=== PATIENT | female | born 1950 | race Caucasian/White ===

== ENCOUNTER 2017-09-04 15:53 | Inpatient (IN) | payer MEDICARE, OTHER ==
[2017-09-04] MEDS ORDERED: Enoxaparin 100 MG/1 ML Syringe SUBCUT ONE (16:16)
[2017-09-04] MEDS ORDERED: Iopamidol 755 Mg/ML 100 ML Bottle IVPUSH ONE (16:20)
[2017-09-04] MEDS ORDERED: Iopamidol 755 MG/ML 50 ML Bottle IVPUSH ONE (16:23)
[2017-09-04] MEDS: Sodium Chloride 0.9% 10 ML Syringe FLUSH PRN ×2 (16:25→16:39)
[2017-09-04] MEDS ORDERED: Sodium Chloride 0.9% 1,000 ML IV SCH (16:30)
--- NOTE | 2017-09-04 16:30 | EDM.PDOC ---
ED HPI GENERAL MEDICAL PROBLEM - General Chief Complaint: Respiratory Problem Stated Complaint: [facility] Time Seen by Provider: 09/04/17 16:08 Source of Information: Reports: Patient History Limitations: Reports: No Limitations - History of Present Illness INITIAL COMMENTS - FREE TEXT/NARRATIVE: The patient states that she flew to [place] from [place], [place], where she lives, about 10 days ago. Afterwards, she discovered that she had bilateral lower extremity edema and painful feet. She states that she got up today around 11:30. She decided to take a dose of her brothers triamterene/hydrochlorothiazide to try to relieve her lower extremity edema. She developed nausea and emesis around 13:00, and did notice some increased urine output. She also had diarrhea, which is chronic. At sometime later - the patient does not know when, she developed sudden onset dyspnea, chest tightness, and a relative felt her pulse to be irregular. He states that her dyspnea was so severe, that she could only breathe while tripoding. When EMS arrived, they found the patient's heart rate to be fast, and she was hypoxemic. In the ED, the patient's SPO2 was 83% on 2 L per NC, 85% on 4 L per NC, and 93% on 6 L per NC. The patient states that she had similar symptoms around 2009. She states that she was hospitalized, but that her workup was negative. Chest Pain Score (Numeric/FACES): 4 - Related Data Allergies Allergy/AdvReac Type Severity Reaction Status Date / Time amoxicillin Allergy Other Verified 09/04/17 16:24 Penicillins Allergy Other Verified 09/04/17 16:24 Home Meds: Home Meds Cholecalciferol (Vitamin D3) [Vitamin D3] 1,000 unit PO DAILY 09/04/17 [History] Hydroxychloroquine [Plaquenil] 200 mg PO BID 09/04/17 [History] Ketorolac Tromethamine/Pf [Acuvail] 1 each OP DAILY 09/04/17 [History] Losartan [Cozaar] 100 mg PO DAILY 09/04/17 [History] Meclizine [Antivert] 25 mg PO DAILY 09/04/17 [History] Sertraline [Zoloft] 100 mg PO DAILY 09/04/17 [History] Ubidecarenone [Co Q-10] 200 mg PO DAILY 09/04/17 [History] atorvaSTATin [Lipitor] 20 mg PO BEDTIME 09/04/17 [History] prednisoLONE Acetate [Prednisolone Acetate] 1 drop OP DAILY 09/04/17 [History] Past Medical History Cardiovascular History: Reports: High Cholesterol, Hypertension Gastrointestinal History: Reports: PUD Genitourinary History: Reports: Urinary Incontinence (stress incontinence) Musculoskeletal History: Reports: Osteoarthritis (knees), Other (See Below) ( Bilateral hip bursitis) Psychiatric History: Reports: Depression, Other (See Below) (Irritable bowel syndrome) Endocrine/Metabolic History: Reports: Obesity/BMI 30+ Oncologic (Cancer) History: Reports: Breast (right, 2013) - Past Surgical History HEENT Surgical History: Reports: Adenoidectomy, Cataract Surgery, Tonsillectomy GI Surgical History: Reports: Appendectomy, Colonoscopy, Hernia, Inguinal (left , x 2) Musculoskeletal Surgical History: Reports: Other (See Below) (Bilateral heel spurs) Oncologic Surgical History: Reports: Lumpectomy (right, 2013) Social & Family History - Tobacco Use Smoking Status *Q: Never Smoker - Alcohol Use Alcohol Use History: Yes Alcohol Use Frequency: Rarely - Recreational Drug Use Recreational Drug Use: No - Living Situation & Occupation Living situation: Reports: Single, Alone Occupation: Retired ED ROS GENERAL - Review of Systems Review Of Systems: ROS reveals no pertinent complaints other than HPI. ED EXAM, GENERAL - Physical Exam Exam: See Below Exam Limited By: No Limitations General Appearance: Alert, WD/WN, No Apparent Distress Eye Exam: Bilateral Eye: EOMI, Normal Inspection Ears: Normal External Exam, Hearing Grossly Normal Nose: Normal Inspection, No Blood Throat/Mouth: Normal Inspection, Normal Lips, Normal Voice, No Airway Compromise Head: Atraumatic, Normocephalic Neck: Normal Inspection, Full Range of Motion Respiratory/Chest: No Respiratory Distress, No Accessory Muscle Use, Decreased Breath Sounds (throughout), Crackles (left base). No: Rhonchi, Wheezing, Prolonged Expiration Cardiovascular: Normal Peripheral Pulses, No Gallop, No JVD, No Murmur, No Rub, Tachycardia (regular), Other (1-2+ pretibial edema bilaterally) Peripheral Pulses: 4+: Radial (L), Radial (R) GI/Abdominal: Normal Bowel Sounds, Soft, Non-Tender, No Organomegaly, No Distention, No Abnormal Bruit, No Mass, Other (Obese) (Female) Exam: Deferred Rectal (Female) Exam: Deferred Back Exam: Normal Inspection, Full Range of Motion, NT Extremities: Normal Inspection, Normal Range of Motion, Normal Capillary Refill Neurological: Alert, Oriented, Normal Cognition, No Motor/Sensory Deficits Psychiatric: Normal Affect Skin Exam: Warm, Dry, Intact, Normal Color, No Rash EKG INTERPRETATION EKG Date: 09/04/17 Time: 16:06 Rhythm: Other (Sinus tachycardia) Rate (Beats/Min): 121 [place]: RAD-Right [place] Deviation P-Wave: Present QRS: Normal ST-T: Normal QT: Prolonged (QTc 497 ms) Comparison: NA - No Prior EKG Course - Vital Signs Last Recorded V/S: Last Vital Signs Temp 37.4 C 09/04/17 16:12 Pulse 127 H 09/04/17 16:12 Resp 16 09/04/17 16:12 BP 109/66 09/04/17 16:12 Pulse Ox 83 L 09/04/17 16:12 - Orders/Labs/Meds Orders: Active Orders 24 hr Category Date Time Status EKG Documentation Completion [RC] STAT Care 09/04/17 16:18 Active Ang Chest [CT] Stat Exams 09/04/17 16:18 Taken Chest 2V [CR] Stat Exams 09/04/17 18:58 Taken Sodium Chloride 0.9% [Normal Saline] 1,000 ml Med 09/04/17 16:30 Active IV ASDIRECTED Sodium Chloride 0.9% [Saline Flush] Med 09/04/17 16:20 Active 10 ml FLUSH ONETIME PRN Medication Orders Sodium Chloride (Normal Saline) 1,000 mls @ 150 mls/hr IV ASDIRECTED BIANCA Last Admin: 09/04/17 16:22 Dose: 150 mls/hr Sodium Chloride (Saline Flush) 10 ml FLUSH ONETIME PRN PRN Reason: IV FLUSH Last Admin: 09/04/17 16:39 Dose: 10 ml Admin: 09/04/17 16:25 Dose: 10 ml Labs: Laboratory Tests 09/04/17 09/04/17 09/04/17 Range/Units 16:55 16:55 16:55 WBC 4.32 (3.98-10.04) K/mm3 RBC 4.93 (3.98-5.22) M/mm3 Hgb 14.7 (11.2-15.7) gm/L Hct 44.8 (34.1-44.9) % MCV 90.9 (79.4-94.8) fl MCH 29.8 (25.6-32.2) pg MCHC 32.8 (32.2-35.5) g/dl RDW Std Deviation 43.2 (36.4-46.3) fL Plt Count 126 L (182-369) K/mm3 MPV 10.6 (9.4-12.3) fl Neutrophils % (Manual) 90 H (40-60) % Band Neutrophils % 0 (0-10) % Lymphocytes % (Manual) 8 L (20-40) % Atypical Lymphs % 0 % Monocytes % (Manual) 1 L (2-10) % Eosinophils % (Manual) 0 L (0.7-5.8) % Basophils % (Manual) 0 L (0.1-1.2) Myelocytes % 1 Platelet Estimate Adequate Plt Morphology Comment Normal RBC Morph Comment Not Reportable Sodium 142 (136-145) mEq/L Potassium 3.4 L (3.5-5.1) mEq/L Chloride 107 (98-107) mEq/L Carbon Dioxide 26 (21-32) mEq/L Anion Gap 12.4 (5-15) BUN 13 (7-18) mg/dL Creatinine 1.1 H (0.55-1.02) mg/dL Est Cr Clr Drug Dosing 38.71 mL/min Estimated GFR (MDRD) 49 (>60) mL/min BUN/Creatinine Ratio 11.8 L (14-18) Glucose 121 H (80-115) mg/dL Calcium 7.7 L (8.5-10.1) mg/dL Magnesium 1.4 L (1.8-2.4) mg/dl Total Bilirubin 0.2 (0.2-1.0) mg/dL AST 26 (15-37) U/L ALT 17 (14-59) U/L Alkaline Phosphatase 44 L (46-116) U/L Troponin I 0.033 (0.00-0.056) ng/mL NT-Pro-B Natriuret Pep 233 H (0-125) pg/mL Total Protein 5.5 L (6.4-8.2) g/dl Albumin 2.7 L (3.4-5.0) g/dl Globulin 2.8 gm/dL Albumin/Globulin Ratio 1.0 (1-2) Meds: Medications Generic Name Dose Route Start Last Admin Trade Name Freq PRN Reason Stop Dose Admin Sodium Chloride 1,000 mls @ 150 mls/hr 09/04/17 16:30 09/04/17 16:22 Normal Saline IV 150 mls/hr ASDIRECTED BIANCA Administration Sodium Chloride 10 ml 09/04/17 16:20 09/04/17 16:39 Saline Flush FLUSH 10 ml ONETIME PRN Administration IV FLUSH Discontinued Medications Generic Name Dose Route Start Last Admin Trade Name Freq PRN Reason Stop Dose Admin Calcium Gluconate 1 gm 09/04/17 17:33 09/04/17 17:58 Calcium Gluconate IV 09/04/17 17:34 1 gm ONETIME STA Administration Enoxaparin Sodium 100 mg 09/04/17 16:16 09/04/17 16:19 Lovenox SUBCUT 09/04/17 16:17 100 mg ONETIME ONE Administration Furosemide 40 mg 09/04/17 17:36 09/04/17 17:54 Lasix IVPUSH 09/04/17 17:37 40 mg NOW ONE Administration Sodium Chloride 150 mls @ 150 mls/hr 09/04/17 16:20 Normal Saline IV 09/04/17 17:19 ASDIRECTED ONE Magnesium Sulfate 2 gm/ Premix 50 mls @ 50 mls/hr 09/04/17 17:31 09/04/17 18: 02 IV 09/04/17 18:30 50 mls/hr ONETIME ONE Administration Iopamidol 100 ml 09/04/17 16:20 09/04/17 16:38 Isovue-370 (76%) IVPUSH 09/04/17 16:21 60 ml ONETIME ONE Administration Iopamidol 50 ml 09/04/17 16:23 09/04/17 16:38 Isovue-370 (76%) IVPUSH 09/04/17 16:24 10 ml ONETIME ONE Administration - Re-Assessments/Exams Free Text/Narrative Re-Assessment/Exam: 09/04/17 16:29 With the history of bilateral lower extremity edema following a flight from [place], then sudden onset shortness of breath, hypoxemia, tachycardia, I am concerned about a pulmonary embolus. I have started the patient on Lovenox at 1 mg/kg empirically, and have ordered a CT angiogram of the chest, along with blood work, an ECG, and IV fluid. 09/04/17 17:27 CT angiogram of the chest is read by [facility] as: Alveolar pulmonary edema Trace pleural effusions No evidence of acute pulmonary embolism 09/04/17 17:34 The patient's CBC is unremarkable. Her CMP finds her calcium depressed at 7.7, and her magnesium depressed at 1.4. Her troponin is within normal limits. I have ordered 1 g calcium gluconate, and a 2 g Mg-rider. Because the patient's shortness of breath and hypoxemia appears to be due to congestive heart failure, I have also ordered Lasix 40 mg IVP. 09/04/17 19:11 I have added a BNP and chest x-ray to the patient's workup. Case discussed with Dr. Arrington in the ED at 19:10. She accepts the patient for admission to telemetry. 09/04/17 19:30 2-view chest radiograph reviewed. Cardiac silhouette is within normal limits. There is pulmonary vascular congestion, to suggest decompensated CHF. Small left -sided pleural effusion. No focal infiltrate. No pneumothorax. Numerous small radiopaque items overlying the right breast. Formal read per the radiologist pending. 09/04/17 19:37 The patient's pro-BNP has returned at only 233. Combined with a normal cardiac silhouette on the chest radiograph, this would suggest that the patient's heart failure is due to diastolic dysfunction. It is curious, however, that her ECG shows right axis deviation, not left, with no LVH, although she has late transition. Departure - Departure Time of Disposition: 19:15 Disposition: Admitted As Inpatient 64 Condition: Fair Clinical Impression: CHF (congestive heart failure), Hypocalcemia, Hypomagnesemia - Discharge Information - My Orders Last 24 Hours: My Active Orders 09/04/17 16:18 EKG Documentation Completion [RC] STAT Ang Chest [CT] Stat 09/04/17 16:20 Sodium Chloride 0.9% [Saline Flush] 10 ml FLUSH ONETIME PRN 09/04/17 16:30 Sodium Chloride 0.9% [Normal Saline] 1,000 ml IV ASDIRECTED 09/04/17 18:58 Chest 2V [CR] Stat - Assessment/Plan Last 24 Hours: My Active Orders 09/04/17 16:18 EKG Documentation Completion [RC] STAT Ang Chest [CT] Stat 09/04/17 16:20 Sodium Chloride 0.9% [Saline Flush] 10 ml FLUSH ONETIME PRN 09/04/17 16:30 Sodium Chloride 0.9% [Normal Saline] 1,000 ml IV ASDIRECTED 09/04/17 18:58 Chest 2V [CR] Stat
[2017-09-04] MEDS ORDERED: Magnesium Sulfate/Water 2 GM in Premix Bag 1 BAG IV ONE (17:31)
[2017-09-04] MEDS ORDERED: Calcium Gluconate 10% 1 GM/10 ML SDV IV STA (17:33)
[2017-09-04] MEDS ORDERED: Furosemide 40 MG/4 ML VIAL IVPUSH ONE (17:36)
--- NOTE | 2017-09-04 20:29 | PCM.HP ---
H&P History of Present Illness - General Date of Service: 09/04/17 Admit Problem/Dx: Admission Diagnosis/Problem Admission Diagnosis/Problem Congestive heart failure Source of Information: Patient, Provider History Limitations: Reports: No Limitations - History of Present Illness Initial Comments - Free Text/Narative: 66 year old female with a PMH of MCTD (on Plaquenil) presents with several complaints. The patient's primary concern was lower extremity swelling, she subsequently took her brother's diuretic. This was followed by a series of symptoms including N/V, and chest pain. She was afebrile, there was no change in appetite. Urine out put increased as expected after the diuretic; however later she reported abrupt SOB, elevated HR and chest pain. In the ED, a d dimer was not done, the CTA of the chest was negative for a PE. Onset of Symptoms: Reports: Gradual Symptom Onset Date: 08/21/17 Duration of Symptoms: Reports: Day(s):, Getting Worse Location: Reports: Lower Extremity, Left, Lower Extremity, Right Severity: Moderate Improves with: Reports: Medication Worsens with: Reports: None Context: Reports: Travel Associated Symptoms: Reports: Nausea/Vomiting, Shortness of Breath, Weakness Chest Pain Score (Numeric/FACES): 4 Generalized Pain Score (Numeric/FACES): 5 - Related Data Allergies/Adverse Reactions: Allergies Allergy/AdvReac Type Severity Reaction Status Date / Time amoxicillin Allergy Other Verified 09/04/17 16:24 Penicillins Allergy Other Verified 09/04/17 16:24 Home Medications: Home Meds Cholecalciferol (Vitamin D3) [Vitamin D3] 1,000 unit PO DAILY 09/04/17 [History] Hydroxychloroquine [Plaquenil] 200 mg PO BID 09/04/17 [History] Ketorolac Tromethamine/Pf [Acuvail] 1 each OP TID 09/04/17 [History] Losartan [Cozaar] 100 mg PO DAILY 09/04/17 [History] Meclizine [Antivert] 25 mg PO DAILY 09/04/17 [History] Sertraline [Zoloft] 100 mg PO DAILY 09/04/17 [History] Ubidecarenone [Co Q-10] 200 mg PO DAILY 09/04/17 [History] atorvaSTATin [Lipitor] 20 mg PO BEDTIME 09/04/17 [History] prednisoLONE Acetate [Prednisolone Acetate] 1 drop OP TID 09/04/17 [History] Tamoxifen Citrate 20 mg PO DAILY 09/05/17 [History] Past Medical History Cardiovascular History: Reports: High Cholesterol, Hypertension Gastrointestinal History: Reports: PUD Genitourinary History: Reports: Urinary Incontinence (stress incontinence) Musculoskeletal History: Reports: Osteoarthritis (knees), Other (See Below) ( Bilateral hip bursitis) Psychiatric History: Reports: Depression, Other (See Below) (Irritable bowel syndrome) Endocrine/Metabolic History: Reports: Obesity/BMI 30+ Oncologic (Cancer) History: Reports: Breast (right, 2013) - Past Surgical History HEENT Surgical History: Reports: Adenoidectomy, Cataract Surgery, Tonsillectomy GI Surgical History: Reports: Appendectomy, Colonoscopy, Hernia, Inguinal (left , x 2) Musculoskeletal Surgical History: Reports: Other (See Below) (Bilateral heel spurs) Oncologic Surgical History: Reports: Lumpectomy (right, 2013) Social & Family History - Family History Family Medical History: Noncontributory - Tobacco Use Smoking Status *Q: Never Smoker - Caffeine Use Caffeine Use: Reports: None - Recreational Drug Use Recreational Drug Use: No - Living Situation & Occupation Living situation: Reports: Single, Alone Occupation: Retired H&P Review of Systems - Review of Systems: Review Of Systems: See Below General: Reports: Weakness, Fatigue HEENT: Reports: No Symptoms Pulmonary: Reports: Shortness of Breath Cardiovascular: Reports: Chest Pain Gastrointestinal: Reports: No Symptoms Genitourinary: Reports: No Symptoms Musculoskeletal: Reports: No Symptoms Skin: Reports: No Symptoms Psychiatric: Reports: No Symptoms Neurological: Reports: No Symptoms Hematologic/Lymphatic: Reports: No Symptoms Immunologic: Reports: No Symptoms Exam - Exam Exam: See Below - Vital Signs Vital Signs: Last Vital Signs Temp 37.4 C 09/04/17 16:12 Pulse 127 H 09/04/17 16:12 Resp 16 09/04/17 16:12 BP 109/66 09/04/17 16:12 Pulse Ox 83 L 09/04/17 16:12 Weight: 106.141 kg - Exam Quality Assessment: Supplemental Oxygen, DVT Prophylaxis General: Alert, Oriented, Cooperative HEENT: Conjunctiva Clear, Nares Patent, Normal Nasal Septum, Posterior Pharynx Clear, Pupils Equal, Pupils Reactive, PERRLA Neck: Trachea Midline Lungs: Normal Respiratory Effort, Decreased Breath Sounds, Rhonchi Cardiovascular: Regular Rate, Regular Rhythm GI/Abdominal Exam: Normal Bowel Sounds, Soft, Non-Tender, No Organomegaly, No Distention (Female) Exam: Deferred Rectal (Female) Exam: Deferred Back Exam: Normal Inspection Extremities: Normal Inspection, Normal Range of Motion, Non-Tender, No Pedal Edema, Normal Capillary Refill Skin: Warm Neurological: Cranial Nerves Intact, Normal Gait, Normal Speech Neuro Extensive - Mental Status: Alert, Oriented x3, Normal Mood/Affect, Normal Cognition, Memory Intact - Patient Data Lab Results Last 24 hrs: Laboratory Results - last 24 hr 09/04/17 09/04/17 09/04/17 Range/Units 16:55 16:55 16:55 WBC 4.32 (3.98-10.04) K/mm3 RBC 4.93 (3.98-5.22) M/mm3 Hgb 14.7 (11.2-15.7) gm/L Hct 44.8 (34.1-44.9) % MCV 90.9 (79.4-94.8) fl MCH 29.8 (25.6-32.2) pg MCHC 32.8 (32.2-35.5) g/dl RDW Std Deviation 43.2 (36.4-46.3) fL Plt Count 126 L (182-369) K/mm3 MPV 10.6 (9.4-12.3) fl Neutrophils % (Manual) 90 H (40-60) % Band Neutrophils % 0 (0-10) % Lymphocytes % (Manual) 8 L (20-40) % Atypical Lymphs % 0 % Monocytes % (Manual) 1 L (2-10) % Eosinophils % (Manual) 0 L (0.7-5.8) % Basophils % (Manual) 0 L (0.1-1.2) Myelocytes % 1 Platelet Estimate Adequate Plt Morphology Comment Normal RBC Morph Comment Not Reportable Sodium 142 (136-145) mEq/L Potassium 3.4 L (3.5-5.1) mEq/L Chloride 107 (98-107) mEq/L Carbon Dioxide 26 (21-32) mEq/L Anion Gap 12.4 (5-15) BUN 13 (7-18) mg/dL Creatinine 1.1 H (0.55-1.02) mg/dL Est Cr Clr Drug Dosing 38.71 mL/min Estimated GFR (MDRD) 49 (>60) mL/min BUN/Creatinine Ratio 11.8 L (14-18) Glucose 121 H (80-115) mg/dL Calcium 7.7 L (8.5-10.1) mg/dL Magnesium 1.4 L (1.8-2.4) mg/dl Total Bilirubin 0.2 (0.2-1.0) mg/dL AST 26 (15-37) U/L ALT 17 (14-59) U/L Alkaline Phosphatase 44 L (46-116) U/L Troponin I 0.033 (0.00-0.056) ng/mL NT-Pro-B Natriuret Pep 233 H (0-125) pg/mL Total Protein 5.5 L (6.4-8.2) g/dl Albumin 2.7 L (3.4-5.0) g/dl Globulin 2.8 gm/dL Albumin/Globulin Ratio 1.0 (1-2) Result Diagrams: 09/05/17 05:48 09/05/17 05:48 - Problem List (1) Shortness of breath SNOMED Code(s): 448607341 ICD Code: R06.02 - SHORTNESS OF BREATH Status: Acute Current Visit: Yes (2) Edema extremities SNOMED Code(s): 882624734 ICD Code: R60.0 - LOCALIZED EDEMA Status: Acute Current Visit: Yes (3) Mixed connective tissue disease SNOMED Code(s): 660687683 ICD Code: M35.1 - OTHER OVERLAP SYNDROMES Status: Chronic Current Visit: Yes (4) Breast cancer SNOMED Code(s): 048551165 ICD Code: C50.919 - MALIGNANT NEOPLASM OF UNSP SITE OF UNSPECIFIED FEMALE BREAST Status: Chronic Current Visit: Yes (5) Morbid obesity with BMI of 40.0-44.9, adult SNOMED Code(s): 500717873 ICD Code: E66.01 - MORBID (SEVERE) OBESITY DUE TO EXCESS CALORIES; Z68.41 - BODY MASS INDEX (BMI) 40.0-44.9, ADULT Status: Chronic Current Visit: Yes (6) Depression SNOMED Code(s): 65893573 ICD Code: F32.9 - MAJOR DEPRESSIVE DISORDER, SINGLE EPISODE, UNSPECIFIED Status: Chronic Current Visit: Yes (7) Hypertension SNOMED Code(s): 53740835 ICD Code: I10 - ESSENTIAL (PRIMARY) HYPERTENSION Status: Chronic Current Visit: Yes (8) Hyperlipidemia SNOMED Code(s): 52731952 ICD Code: E78.5 - HYPERLIPIDEMIA, UNSPECIFIED Status: Chronic Current Visit: Yes (9) Hypocalcemia SNOMED Code(s): 2858164 ICD Code: E83.51 - HYPOCALCEMIA Status: Chronic Current Visit: Yes (10) Hypomagnesemia SNOMED Code(s): 678970724 ICD Code: E83.42 - HYPOMAGNESEMIA Status: Chronic Current Visit: Yes Problem List Initiated/Reviewed/Updated: Yes Orders Last 24hrs: Active Orders 24 hr Category Date Time Status Patient Status [ADT] Routine ADT 09/04/17 20:10 Active EKG Documentation Completion [RC] STAT Care 09/04/17 16:18 Active Ang Chest [CT] Stat Exams 09/04/17 16:18 Taken Chest 2V [CR] Stat Exams 09/04/17 18:58 Taken Sodium Chloride 0.9% [Normal Saline] 1,000 ml Med 09/04/17 16:30 Active IV ASDIRECTED Sodium Chloride 0.9% [Saline Flush] Med 09/04/17 16:20 Active 10 ml FLUSH ONETIME PRN Medication Orders Sodium Chloride (Normal Saline) 1,000 mls @ 150 mls/hr IV ASDIRECTED BIANCA Last Admin: 09/04/17 16:22 Dose: 150 mls/hr Sodium Chloride (Saline Flush) 10 ml FLUSH ONETIME PRN PRN Reason: IV FLUSH Last Admin: 09/04/17 16:39 Dose: 10 ml Admin: 09/04/17 16:25 Dose: 10 ml Assessment/Plan Comment:: Impression: MCTD on Plaquenil; patient reports negative work up for PHT Acute SOB after recent travel, negative CTA of chest Morbid obesity Chronic History of breast cancer on Tamoxifen Hypertension Hyperlipidemia Plan: Infectious work up Pulmonary assessment Droplet precautions Ischemic work up Obtain clinic notes/2D echo performed May 2017 [place], [place] Home meds Nebs Daily labs DVT/GI prophylaxis
[2017-09-04] MEDS ORDERED: Magnesium Sulfate/Water 4 GM in Premix Bag 1 BAG IV ONE (20:30)
[2017-09-04] MEDS ORDERED: Temazepam 7.5 MG Cap PO PRN (20:54)
[2017-09-04] MEDS ORDERED: Enoxaparin 30 MG/0.3 ML Syringe SUBCUT SCH (21:00)
[2017-09-04] MEDS ORDERED: Ondansetron 4 MG/2 ML SDV IVPUSH PRN (21:02)
[2017-09-04] MEDS: Simvastatin 20 MG Tab PO SCH (21:57)
[2017-09-04] MEDS: Hydroxychloroquine 200 MG Tab PO SCH (21:58)
[2017-09-04] MEDS: Potassium Chloride 20 MEQ Tab.ER PO SCH (22:09)
[2017-09-05] MEDS ORDERED: Pneumococcal Polyvalent-23 Vaccine 0.5 ML SDV IM ONE (02:01)
[2017-09-05] MEDS: KETOROLAC 0.5% EYEBOTH SCH (08:33)
[2017-09-05] MEDS: Potassium Chloride 20 MEQ Tab.ER PO SCH ×2 (08:35→20:28)
[2017-09-05] MEDS: Sertraline 50 MG Tab PO SCH (08:37)
[2017-09-05] MEDS: Acetaminophen 325 MG Tab PO PRN ×2 (08:38→15:43)
[2017-09-05] MEDS: Hydroxychloroquine 200 MG Tab PO SCH ×2 (08:40→20:30)
[2017-09-05] MEDS ORDERED: Enoxaparin 40 MG/0.4 ML Syringe SUBCUT SCH (09:00)
[2017-09-05] MEDS ORDERED: TAMOXIFEN 20 MG PO SCH (15:30)
[2017-09-05] MEDS: PREDNISOLONE ACETATE 1% EYERT SCH ×2 (15:42→20:31)
[2017-09-05] MEDS ORDERED: Albuterol/Ipratropium 3.0-0.5 MG/3 ML Neb Soln NEB PRN (16:44)
[2017-09-05] MEDS ORDERED: methylPREDNISolone Sodium Succinate 125 MG/2 ML SDV IVPUSH SCH (16:45)
[2017-09-05] MEDS: methylPREDNISolone Sodium Succinate 125 MG/2 ML SDV IVPUSH SCH (16:56)
--- NOTE | 2017-09-05 17:40 | PCM.PN ---
- General Info Date of Service: 09/05/17 Functional Status: Reports: Tolerating Diet, Ambulating - Review of Systems General: Reports: No Symptoms HEENT: Reports: No Symptoms Pulmonary: Reports: Shortness of Breath (without O2) Cardiovascular: Reports: No Symptoms Gastrointestinal: Reports: No Symptoms Genitourinary: Reports: No Symptoms Musculoskeletal: Reports: No Symptoms Skin: Reports: No Symptoms Neurological: Reports: No Symptoms Psychiatric: Reports: No Symptoms - Patient Data Vitals - Most Recent: Last Vital Signs Temp 36.8 C 09/05/17 15:05 Pulse 74 09/05/17 15:10 Resp 20 09/05/17 15:05 BP 114/50 L 09/05/17 15:05 Pulse Ox 92 L 09/05/17 15:13 Weight - Most Recent: 106.141 kg I&O - Last 24 Hours: Intake & Output 09/05/17 09/05/17 09/05/17 06:59 14:59 22:59 Intake Total 950 360 750 Output Total 650 700 Balance 300 360 50 Lab Results Last 24 Hours: Laboratory Results - last 24 hr 09/04/17 09/04/17 09/05/17 Range/Units 16:55 16:55 05:48 WBC 8.45 (3.98-10.04) K/mm3 RBC 4.82 (3.98-5.22) M/mm3 Hgb 14.3 (11.2-15.7) gm/L Hct 43.7 (34.1-44.9) % MCV 90.7 (79.4-94.8) fl MCH 29.7 (25.6-32.2) pg MCHC 32.7 (32.2-35.5) g/dl RDW Std Deviation 44.6 (36.4-46.3) fL Plt Count 144 L (182-369) K/mm3 MPV 11.2 (9.4-12.3) fl Neut % (Auto) 77.5 H (34.0-71.1) % Lymph % (Auto) 14.0 L (19.3-51.7) % Parmer % (Auto) 7.6 (4.7-12.5) % Eos % (Auto) 0.6 L (0.7-5.8) Baso % (Auto) 0.1 (0.1-1.2) % Neut # (Auto) 6.55 H (1.56-6.13) K/mm3 Lymph # (Auto) 1.18 (1.18-3.74) K/mm3 [place]mer # (Auto) 0.64 H (0.24-0.36) K/mm3 Eos # (Auto) 0.05 (0.04-0.36) K/mm3 Baso # (Auto) 0.01 (0.01-0.08) K/mm3 Sodium (136-145) mEq/L Potassium (3.5-5.1) mEq/L Chloride (98-107) mEq/L Carbon Dioxide (21-32) mEq/L Anion Gap (5-15) BUN (7-18) mg/dL Creatinine (0.55-1.02) mg/dL Est Cr Clr Drug Dosing mL/min Estimated GFR (MDRD) (>60) mL/min BUN/Creatinine Ratio (14-18) Glucose (80-115) mg/dL Calcium (8.5-10.1) mg/dL Magnesium (1.8-2.4) mg/dl NT-Pro-B Natriuret Pep 233 H (0-125) pg/mL Mycoplasma pneumon IgM Negative (NEGATIVE) 09/05/17 Range/Units 05:48 WBC (3.98-10.04) K/mm3 RBC (3.98-5.22) M/mm3 Hgb (11.2-15.7) gm/L Hct (34.1-44.9) % MCV (79.4-94.8) fl MCH (25.6-32.2) pg MCHC (32.2-35.5) g/dl RDW Std Deviation (36.4-46.3) fL Plt Count (182-369) K/mm3 MPV (9.4-12.3) fl Neut % (Auto) (34.0-71.1) % Lymph % (Auto) (19.3-51.7) % [place]mer % (Auto) (4.7-12.5) % Eos % (Auto) (0.7-5.8) Baso % (Auto) (0.1-1.2) % Neut # (Auto) (1.56-6.13) K/mm3 Lymph # (Auto) (1.18-3.74) K/mm3 [place]mer # (Auto) (0.24-0.36) K/mm3 Eos # (Auto) (0.04-0.36) K/mm3 Baso # (Auto) (0.01-0.08) K/mm3 Sodium 141 (136-145) mEq/L Potassium 4.5 (3.5-5.1) mEq/L Chloride 106 (98-107) mEq/L Carbon Dioxide 27 (21-32) mEq/L Anion Gap 12.5 (5-15) BUN 13 (7-18) mg/dL Creatinine 1.1 H (0.55-1.02) mg/dL Est Cr Clr Drug Dosing 38.71 mL/min Estimated GFR (MDRD) 49 (>60) mL/min BUN/Creatinine Ratio 11.8 L (14-18) Glucose 107 (80-115) mg/dL Calcium 8.1 L (8.5-10.1) mg/dL Magnesium 3.0 H (1.8-2.4) mg/dl NT-Pro-B Natriuret Pep (0-125) pg/mL Mycoplasma pneumon IgM (NEGATIVE) Med Orders - Current: Current Medications Acetaminophen (Tylenol) 650 mg PO Q6H PRN PRN Reason: Pain/Fever Last Admin: 09/05/17 15:43 Dose: 650 mg Albuterol/Ipratropium (Duoneb 3.0-0.5 Mg/3 Ml) 3 ml NEB QID PRN PRN Reason: Shortness of Breath Enoxaparin Sodium (Lovenox) 40 mg SUBCUT DAILY [facility] Last Admin: 09/05/17 08:38 Dose: 40 mg Hydroxychloroquine Sulfate (Plaquenil) 200 mg PO BID [facility] Last Admin: 09/05/17 08:40 Dose: 200 mg Ketorolac Tromethamine (Acular 0.5% Ophth Soln) 0 ml EYEBOTH DAILY [facility] Last Admin: 09/05/17 08:33 Dose: 1 drop Losartan Potassium (Cozaar) 50 mg PO BID [facility] Meclizine HCl (Antivert) 25 mg PO DAILY [facility] Last Admin: 09/05/17 08:38 Dose: 25 mg Methylprednisolone Sodium Succinate (Solu-Medrol) 125 mg IVPUSH Q12H [facility] Last Admin: 09/05/17 16:56 Dose: 125 mg Ondansetron HCl (Zofran) 4 mg IVPUSH Q8H PRN PRN Reason: Nausea/Vomiting Potassium Chloride (Klor-Con M20) 40 meq PO BID [facility] Stop: 09/06/17 09:01 Last Admin: 09/05/17 08:35 Dose: 40 meq Prednisolone Acetate (Pred Forte 1% Ophth Susp) 0 ml EYERT TID [facility] Last Admin: 09/05/17 15:42 Dose: 1 drop Sertraline HCl (Zoloft) 100 mg PO DAILY [facility] Last Admin: 09/05/17 08:37 Dose: 100 mg Simvastatin (Zocor) 20 mg PO BEDTIME [facility] Last Admin: 09/04/17 21:57 Dose: 20 mg Sodium Chloride (Saline Flush) 10 ml FLUSH ONETIME PRN PRN Reason: IV FLUSH Last Admin: 09/04/17 16:39 Dose: 10 ml Tamoxifen Citrate (Nolvadex) 0 mg PO BEDTIME [facility] Temazepam (Restoril) 7.5 mg PO BEDTIME PRN PRN Reason: Insomnia Discontinued Medications Calcium Gluconate (Calcium Gluconate) 1 gm IV ONETIME STA Stop: 09/04/17 17:34 Last Admin: 09/04/17 17:58 Dose: 1 gm Enoxaparin Sodium (Lovenox) 100 mg SUBCUT ONETIME ONE Stop: 09/04/17 16:17 Last Admin: 09/04/17 16:19 Dose: 100 mg Enoxaparin Sodium (Lovenox) 40 mg SUBCUT Q24H [facility] Last Admin: 09/04/17 22:11 Dose: Not Given Furosemide (Lasix) 40 mg IVPUSH NOW ONE Stop: 09/04/17 17:37 Last Admin: 09/04/17 17:54 Dose: 40 mg Sodium Chloride (Normal Saline) 1,000 mls @ 150 mls/hr IV ASDIRECTED [facility] Last Admin: 09/04/17 16:22 Dose: 150 mls/hr Sodium Chloride (Normal Saline) 150 mls @ 150 mls/hr IV ASDIRECTED ONE Stop: 09/04/17 17:19 Last Admin: 09/04/17 21:29 Dose: Not Given Magnesium Sulfate 2 gm/ Premix 50 mls @ 50 mls/hr IV ONETIME ONE Stop: 09/04/17 18:30 Last Admin: 09/04/17 18:02 Dose: 50 mls/hr Magnesium Sulfate 4 gm/ Premix 100 mls @ 50 mls/hr IV ONETIME ONE Stop: 09/04/17 22:29 Last Admin: 09/04/17 21:57 Dose: 50 mls/hr Iopamidol (Isovue-370 (76%)) 100 ml IVPUSH ONETIME ONE Stop: 09/04/17 16:21 Last Admin: 09/04/17 16:38 Dose: 60 ml Iopamidol (Isovue-370 (76%)) 50 ml IVPUSH ONETIME ONE Stop: 09/04/17 16:24 Last Admin: 09/04/17 16:38 Dose: 10 ml Methylprednisolone Sodium Succinate (Solu-Medrol) 125 mg IVPUSH DAILY [facility] Pneumococcal Polyvalent Vaccine (Pneumovax 23) 0.5 ml IM .ONCE ONE Stop: 09/05/17 02:02 Tamoxifen Citrate (Nolvadex) 0 mg PO DAILY [facility] - Exam Quality Assessment: Supplemental Oxygen, DVT Prophylaxis General: Alert, Oriented, Cooperative, No Acute Distress HEENT: Pupils Equal, Pupils Reactive, EOMI Neck: Trachea Midline, No JVD Lungs: Normal Respiratory Effort, Decreased Breath Sounds, Crackles Cardiovascular: Regular Rate, Regular Rhythm GI/Abdominal Exam: Normal Bowel Sounds, Soft, Non-Tender, No Organomegaly, No Distention (Female) Exam: Deferred Back Exam: Normal Inspection Extremities: Normal Inspection, No Pedal Edema, Normal Capillary Refill Skin: Warm Wound/Incisions: Healing Well Neurological: No New Focal Deficit, Normal Gait, Normal Speech Psy/Mental Status: Alert, Normal Affect, Normal Mood - Problem List & Annotations (1) Shortness of breath SNOMED Code(s): 239644765 Code(s): R06.02 - SHORTNESS OF BREATH Status: Acute Current Visit: Yes (2) Edema extremities SNOMED Code(s): 584913749 Code(s): R60.0 - LOCALIZED EDEMA Status: Acute Current Visit: Yes (3) Mixed connective tissue disease SNOMED Code(s): 176408598 Code(s): M35.1 - OTHER OVERLAP SYNDROMES Status: Chronic Current Visit: Yes (4) Breast cancer SNOMED Code(s): 942494390 Code(s): C50.919 - MALIGNANT NEOPLASM OF UNSP SITE OF UNSPECIFIED FEMALE BREAST Status: Chronic Current Visit: Yes (5) Morbid obesity with BMI of 40.0-44.9, adult SNOMED Code(s): 596372599 Code(s): E66.01 - MORBID (SEVERE) OBESITY DUE TO EXCESS CALORIES; Z68.41 - BODY MASS INDEX (BMI) 40.0-44.9, ADULT Status: Chronic Current Visit: Yes (6) Depression SNOMED Code(s): 37732160 Code(s): F32.9 - MAJOR DEPRESSIVE DISORDER, SINGLE EPISODE, UNSPECIFIED Status: Chronic Current Visit: Yes (7) Hypertension SNOMED Code(s): 37487954 Code(s): I10 - ESSENTIAL (PRIMARY) HYPERTENSION Status: Chronic Current Visit: Yes (8) Hyperlipidemia SNOMED Code(s): 04623368 Code(s): E78.5 - HYPERLIPIDEMIA, UNSPECIFIED Status: Chronic Current Visit: Yes (9) Hypocalcemia SNOMED Code(s): 9180111 Code(s): E83.51 - HYPOCALCEMIA Status: Chronic Current Visit: Yes (10) Hypomagnesemia SNOMED Code(s): 141079177 Code(s): E83.42 - HYPOMAGNESEMIA Status: Chronic Current Visit: Yes - Problem List Review Problem List Initiated/Reviewed/Updated: Yes - My Orders Last 24 Hours: My Active Orders 09/04/17 20:31 Activity as Tolerated [RC] .Routine Code Status [Resuscitation Status] Routine 09/04/17 20:41 Isolation [COMM] Routine 09/04/17 20:43 STREP PNEUMONIAE ANTIGEN [MREF] Routine 09/04/17 20:54 Temazepam [Restoril] 7.5 mg PO BEDTIME PRN 09/04/17 20:57 SUZANNE Hose [Antiembolic Hose] [OM.PC] Routine 09/04/17 21:00 Acetaminophen [Tylenol] 650 mg PO Q6H PRN Hydroxychloroquine [Plaquenil] 200 mg PO BID Simvastatin [Zocor] 20 mg PO BEDTIME 09/04/17 21:02 Ondansetron [Zofran] 4 mg IVPUSH Q8H PRN 09/04/17 21:10 RESPIRATORY PANEL BY PCR [MREF] Routine 09/04/17 22:00 Potassium Chloride [Klor-Con M20] 40 meq PO BID 09/05/17 04:22 Oxygen Therapy Adult [Oxygen Therapy] [RC] ASDIRECTED 09/05/17 09:00 Enoxaparin [Lovenox] 40 mg SUBCUT DAILY Ketorolac [Acular 0.5% Ophth Soln] 0 ml EYEBOTH DAILY Meclizine [Antivert] 25 mg PO DAILY Sertraline [Zoloft] 100 mg PO DAILY 09/05/17 10:00 CXR [Chest 2V] [CR] Routine Venous Doppler Lwr Ext Bi [US] Routine 09/05/17 11:14 Consult to Occupational Therapy [OT Evaluation and Treatment] [CONS] Routine Consult to Physical Therapy [PT Evaluation and Treatment] [CONS] Routine 09/05/17 15:00 prednisoLONE Acetate [Pred Forte 1% Ophth Susp] 0 ml EYERT TID 09/05/17 16:44 RT Aerosol Therapy [RC] ASDIRECTED Albuterol/Ipratropium [DuoNeb 3.0-0.5 MG/3 ML] 3 ml NEB QID PRN 09/05/17 17:00 methylPREDNISolone Sod Succ [Solu-MEDROL] 125 mg IVPUSH Q12H 09/05/17 18:00 D Dimer [D-DIMER QUANTITATIVE] [COAG] Routine PRO B-TYPE NATRIUR PEPT,BNPPRO [CHEM] Routine TROPONIN I [CHEM] Routine 09/05/17 21:00 Losartan [Cozaar] 50 mg PO BID Tamoxifen [Nolvadex] 0 mg PO BEDTIME 09/05/17 Breakfast Heart Healthy Diet [DIET] 09/06/17 05:00 BMP [BASIC METABOLIC PANEL,BMP] [CHEM] DAILY CBC WITH AUTO DIFF [HEME] DAILY MAGNESIUM [CHEM] DAILY 09/07/17 05:00 BMP [BASIC METABOLIC PANEL,BMP] [CHEM] DAILY CBC WITH AUTO DIFF [HEME] DAILY MAGNESIUM [CHEM] DAILY 09/07/17 09:00 Lung Vent Perfusion [NM] Routine 09/08/17 05:00 BMP [BASIC METABOLIC PANEL,BMP] [CHEM] DAILY CBC WITH AUTO DIFF [HEME] DAILY MAGNESIUM [CHEM] DAILY - Plan Plan:: Impression: MCTD on Plaquenil; patient reports negative work up for PHT Acute SOB after recent travel, negative CTA of chest Morbid obesity Chronic History of breast cancer on Tamoxifen Hypertension Hyperlipidemia Plan: Infectious work up Pulmonary assessment Droplet precautions Ischemic work up Start solumedrol 125 mg IV q 12H Duonebs V/Q 09/07/2017 Obtain clinic notes/2D echo performed May 2017 [place], [place] Home meds Nebs Daily labs DVT/GI prophylaxis
[2017-09-05] MEDS: Enoxaparin 100 MG/1 ML Syringe SUBCUT SCH (20:26)
[2017-09-05] MEDS: Simvastatin 20 MG Tab PO SCH (20:28)
[2017-09-05] MEDS: Losartan 100 MG Tab PO SCH (20:28)
[2017-09-05] MEDS: TAMOXIFEN 20 MG PO SCH (20:30)
[2017-09-06] MEDS: methylPREDNISolone Sodium Succinate 125 MG/2 ML SDV IVPUSH SCH ×2 (04:00→16:53)
[2017-09-06] MEDS: Potassium Chloride 20 MEQ Tab.ER PO SCH (09:12)
[2017-09-06] MEDS: Sertraline 50 MG Tab PO SCH (09:16)
[2017-09-06] MEDS: Losartan 100 MG Tab PO SCH ×2 (09:17→21:14)
[2017-09-06] MEDS: Hydroxychloroquine 200 MG Tab PO SCH ×2 (09:20→21:14)
[2017-09-06] MEDS: KETOROLAC 0.5% EYEBOTH SCH (09:23)
[2017-09-06] MEDS: Enoxaparin 100 MG/1 ML Syringe SUBCUT SCH ×2 (09:24→21:13)
[2017-09-06] MEDS: PREDNISOLONE ACETATE 1% EYERT SCH ×3 (09:24→21:17)
[2017-09-06] MEDS: Acetaminophen 325 MG Tab PO PRN ×2 (09:33→16:58)
--- NOTE | 2017-09-06 10:35 | PCM.PN ---
- General Info Date of Service: 09/06/17 Admission Dx/Problem (Free Text): Admission Diagnosis/Problem Admission Diagnosis/Problem Congestive heart failure Subjective Update: Follow Up Functional Status: Reports: Pain Controlled, Tolerating Diet, Urinating. Denies : New Symptoms - Review of Systems General: Denies: Fever, Chills HEENT: Reports: No Symptoms Pulmonary: Reports: Shortness of Breath. Denies: Cough, Sputum Cardiovascular: Reports: Dyspnea on Exertion, Edema. Denies: Chest Pain, Palpitations, Lightheadedness Gastrointestinal: Reports: Nausea. Denies: Abdominal Pain, Vomiting Genitourinary: Reports: No Symptoms Musculoskeletal: Reports: No Symptoms Skin: Reports: Other. Denies: Cyanosis, Pallor, Diaphoresis Neurological: Reports: Confusion, Difficulty Walking, Weakness, Gait Disturbance Psychiatric: Denies: Depression, Anxiety, Agitation, Hallucinations Systems Review Comment:: No overnight or acute issues. She feels she is getting better but not quite there yet. She is still n supplemental O2. She was her HH diet discontinued. She has no new complaints. She is afebrile w/o leukocytosis. CRP is 6.9 and ProBNP of 184. - Patient Data Vitals - Most Recent: Last Vital Signs Temp 36.7 C 09/06/17 08:42 Pulse 55 L 09/06/17 08:42 Resp 18 09/06/17 08:42 BP 143/65 H 09/06/17 09:17 Pulse Ox 94 L 09/06/17 08:42 Weight - Most Recent: 107.91 kg I&O - Last 24 Hours: Intake & Output 09/05/17 09/06/17 09/06/17 22:59 06:59 14:59 Intake Total 1310 400 Output Total 700 625 Balance 610 -225 Lab Results Last 24 Hours: Laboratory Results - last 24 hr 09/05/17 09/05/17 09/05/17 Range/Units 18:07 18:07 18:07 WBC (3.98-10.04) K/mm3 RBC (3.98-5.22) M/mm3 Hgb (11.2-15.7) gm/L Hct (34.1-44.9) % MCV (79.4-94.8) fl MCH (25.6-32.2) pg MCHC (32.2-35.5) g/dl RDW Std Deviation (36.4-46.3) fL Plt Count (182-369) K/mm3 MPV (9.4-12.3) fl Neut % (Auto) (34.0-71.1) % Lymph % (Auto) (19.3-51.7) % Mck[place]ley % (Auto) (4.7-12.5) % Eos % (Auto) (0.7-5.8) Baso % (Auto) (0.1-1.2) % Neut # (Auto) (1.56-6.13) K/mm3 Lymph # (Auto) (1.18-3.74) K/mm3 [place]ley # (Auto) (0.24-0.36) K/mm3 Eos # (Auto) (0.04-0.36) K/mm3 Baso # (Auto) (0.01-0.08) K/mm3 Manual Slide Review D-Dimer, Quantitative 4.44 H (0.19-0.50) mg/L Sodium (136-145) mEq/L Potassium (3.5-5.1) mEq/L Chloride (98-107) mEq/L Carbon Dioxide (21-32) mEq/L Anion Gap (5-15) BUN (7-18) mg/dL Creatinine (0.55-1.02) mg/dL Est Cr Clr Drug Dosing mL/min Estimated GFR (MDRD) (>60) mL/min BUN/Creatinine Ratio (14-18) Glucose (80-115) mg/dL Lactic Acid (0.4-2.0) mmol/L Calcium (8.5-10.1) mg/dL Magnesium (1.8-2.4) mg/dl Troponin I < 0.017 (0.00-0.056) ng/mL C-Reactive Protein (<1.0) mg/dL NT-Pro-B Natriuret Pep 184 H (0-125) pg/mL 09/06/17 09/06/17 09/06/17 Range/Units 06:35 06:35 06:35 WBC 7.92 (3.98-10.04) K/mm3 RBC 4.48 (3.98-5.22) M/mm3 Hgb 13.3 (11.2-15.7) gm/L Hct 40.6 (34.1-44.9) % MCV 90.6 (79.4-94.8) fl MCH 29.7 (25.6-32.2) pg MCHC 32.8 (32.2-35.5) g/dl RDW Std Deviation 42.4 (36.4-46.3) fL Plt Count 135 L (182-369) K/mm3 MPV 10.6 (9.4-12.3) fl Neut % (Auto) 89.8 H (34.0-71.1) % Lymph % (Auto) 8.5 L (19.3-51.7) % Mck[place]ley % (Auto) 1.6 L (4.7-12.5) % Eos % (Auto) 0 L (0.7-5.8) Baso % (Auto) 0.0 L (0.1-1.2) % Neut # (Auto) 7.11 H (1.56-6.13) K/mm3 Lymph # (Auto) 0.67 L (1.18-3.74) K/mm3 [place]ck[place]ley # (Auto) 0.13 L (0.24-0.36) K/mm3 Eos # (Auto) 0.00 L (0.04-0.36) K/mm3 Baso # (Auto) 0.00 L (0.01-0.08) K/mm3 Manual Slide Review Abnormal smear D-Dimer, Quantitative (0.19-0.50) mg/L Sodium 141 (136-145) mEq/L Potassium 4.8 (3.5-5.1) mEq/L Chloride 106 (98-107) mEq/L Carbon Dioxide 27 (21-32) mEq/L Anion Gap 12.8 (5-15) BUN 15 (7-18) mg/dL Creatinine 0.8 (0.55-1.02) mg/dL Est Cr Clr Drug Dosing 53.23 mL/min Estimated GFR (MDRD) > 60 (>60) mL/min BUN/Creatinine Ratio 18.8 H (14-18) Glucose 161 H (80-115) mg/dL Lactic Acid 0.7 (0.4-2.0) mmol/L Calcium 8.5 (8.5-10.1) mg/dL Magnesium 2.2 (1.8-2.4) mg/dl Troponin I (0.00-0.056) ng/mL C-Reactive Protein 6.9 H* (<1.0) mg/dL NT-Pro-B Natriuret Pep (0-125) pg/mL Med Orders - Current: Current Medications Acetaminophen (Tylenol) 650 mg PO Q6H PRN PRN Reason: Pain/Fever Last Admin: 09/06/17 09:33 Dose: 650 mg Albuterol/Ipratropium (Duoneb 3.0-0.5 Mg/3 Ml) 3 ml NEB QID PRN PRN Reason: Shortness of Breath Enoxaparin Sodium (Lovenox) 100 mg SUBCUT Q12H [facility] Last Admin: 09/06/17 09:24 Dose: 100 mg Hydroxychloroquine Sulfate (Plaquenil) 200 mg PO BID [facility] Last Admin: 09/06/17 09:20 Dose: 200 mg Ketorolac Tromethamine (Acular 0.5% Ophth Soln) 0 ml EYEBOTH DAILY [facility] Last Admin: 09/06/17 09:23 Dose: 1 drop Losartan Potassium (Cozaar) 50 mg PO BID [facility] Last Admin: 09/06/17 09:17 Dose: 50 mg Meclizine HCl (Antivert) 25 mg PO DAILY [facility] Last Admin: 09/06/17 09:17 Dose: 25 mg Methylprednisolone Sodium Succinate (Solu-Medrol) 125 mg IVPUSH Q12H [facility] Last Admin: 09/06/17 04:00 Dose: 125 mg Ondansetron HCl (Zofran) 4 mg IVPUSH Q8H PRN PRN Reason: Nausea/Vomiting Prednisolone Acetate (Pred Forte 1% Ophth Susp) 0 ml EYERT TID [facility] Last Admin: 09/06/17 09:24 Dose: 1 drop Sertraline HCl (Zoloft) 100 mg PO DAILY [facility] Last Admin: 09/06/17 09:16 Dose: 100 mg Simvastatin (Zocor) 20 mg PO BEDTIME [facility] Last Admin: 09/05/17 20:28 Dose: 20 mg Sodium Chloride (Saline Flush) 10 ml FLUSH ONETIME PRN PRN Reason: IV FLUSH Last Admin: 09/04/17 16:39 Dose: 10 ml Tamoxifen Citrate (Nolvadex) 0 mg PO BEDTIME [facility] Last Admin: 09/05/17 20:30 Dose: 20 mg Temazepam (Restoril) 7.5 mg PO BEDTIME PRN PRN Reason: Insomnia Discontinued Medications Calcium Gluconate (Calcium Gluconate) 1 gm IV ONETIME STA Stop: 09/04/17 17:34 Last Admin: 09/04/17 17:58 Dose: 1 gm Enoxaparin Sodium (Lovenox) 100 mg SUBCUT ONETIME ONE Stop: 09/04/17 16:17 Last Admin: 09/04/17 16:19 Dose: 100 mg Enoxaparin Sodium (Lovenox) 40 mg SUBCUT Q24H [facility] Last Admin: 09/04/17 22:11 Dose: Not Given Enoxaparin Sodium (Lovenox) 40 mg SUBCUT DAILY [facility] Last Admin: 09/05/17 08:38 Dose: 40 mg Furosemide (Lasix) 40 mg IVPUSH NOW ONE Stop: 09/04/17 17:37 Last Admin: 09/04/17 17:54 Dose: 40 mg Sodium Chloride (Normal Saline) 1,000 mls @ 150 mls/hr IV ASDIRECTED [facility] Last Admin: 09/04/17 16:22 Dose: 150 mls/hr Sodium Chloride (Normal Saline) 150 mls @ 150 mls/hr IV ASDIRECTED ONE Stop: 09/04/17 17:19 Last Admin: 09/04/17 21:29 Dose: Not Given Magnesium Sulfate 2 gm/ Premix 50 mls @ 50 mls/hr IV ONETIME ONE Stop: 09/04/17 18:30 Last Admin: 09/04/17 18:02 Dose: 50 mls/hr Magnesium Sulfate 4 gm/ Premix 100 mls @ 50 mls/hr IV ONETIME ONE Stop: 09/04/17 22:29 Last Admin: 09/04/17 21:57 Dose: 50 mls/hr Iopamidol (Isovue-370 (76%)) 100 ml IVPUSH ONETIME ONE Stop: 09/04/17 16:21 Last Admin: 09/04/17 16:38 Dose: 60 ml Iopamidol (Isovue-370 (76%)) 50 ml IVPUSH ONETIME ONE Stop: 09/04/17 16:24 Last Admin: 09/04/17 16:38 Dose: 10 ml Methylprednisolone Sodium Succinate (Solu-Medrol) 125 mg IVPUSH DAILY [facility] Last Admin: 09/05/17 17:51 Dose: Not Given Pneumococcal Polyvalent Vaccine (Pneumovax 23) 0.5 ml IM .ONCE ONE Stop: 09/05/17 02:02 Potassium Chloride (Klor-Con M20) 40 meq PO BID [facility] Stop: 09/06/17 09:01 Last Admin: 09/06/17 09:12 Dose: 40 meq Tamoxifen Citrate (Nolvadex) 0 mg PO DAILY [facility] Last Admin: 09/05/17 17:50 Dose: Not Given - Exam Quality Assessment: Supplemental Oxygen General: Alert, Oriented, Cooperative, No Acute Distress, Other (Morbidly Obese) HEENT: Pupils Equal, Pupils Reactive, EOMI, Mucous Membr. Moist/[place] Neck: Supple, Trachea Midline, No JVD, No Thyromegaly, Other (short and thick) Lungs: Normal Respiratory Effort, Decreased Breath Sounds Cardiovascular: Regular Rate, Regular Rhythm GI/Abdominal Exam: Normal Bowel Sounds, Soft, Non-Tender, No Organomegaly, No Distention, No Abnormal Bruit, Other (Obese) (Female) Exam: Deferred Back Exam: Normal Inspection, Decreased Range of Motion Extremities: Normal Inspection, Normal Range of Motion, Normal Capillary Refill , Other (hypersensitivity to light touch on left lower extremity). No: Non- Tender Peripheral Pulses: 2+: Dorsalis Pedis (L), Dorsalis Pedis (R) Skin: Warm, Dry, Intact Neurological: No New Focal Deficit Psy/Mental Status: Alert, Normal Affect, Normal Mood - Problem List Review Problem List Initiated/Reviewed/Updated: Yes - Plan Plan:: Impression/Plan: Acute: MCTD Exacerbation - On Plaquenil; patient reports negative work up for Pulmonary HTN - Also on IV Steroids--> will switch to oral in AM no indication for High dose IV steroids - CRP 6.9 - CTA shows prominently ground glass opacities throughout the perihilar regions bilaterally. There is smooth thickening of the inter-lobar septae. There is diffuse kiera-bronchial thickening - Will obtain recent 2D echo from his parts inspector in [place]; Dr. Linares Acute SOB w/ Elevated D-Dimer - 2/2 Pulmonary Insufficiency from MCTD +/- NIYA/OHS - May need PFT to assess lung function - Negative CTA of chest after recent travel all the way from [place], pending duplex U/S result - Continue supplemental O2 Morbid Obesity - Dietary consult for weight management - FT4 is normal with low level of TSH - Advised LSM Probable NIYA - Screen with STOP BANG in AM Chronic: History of breast cancer on Tamoxifen Hypertension Hyperlipidemia Plan: She is clinically stable Stop infectious work up; she is afebrile w/o leukocytosis Pulmonary assessment Screen for DM with A1C in AM Mycoplasma Pneumonia Ag negative Solumedrol 125 mg IV q 12H--> Oral Prednisone in AM V/Q 09/07/2017--> cancelled; CTA is more accurate than V/Q scan and already showed no PE Obtain clinic notes/2D echo performed May 2017 [place], [place] Routine AM labs DVT/GI prophylaxis: Lovenox SubQ and H2B LOS anticipate > 96 hrs due to slow response to treatment
[2017-09-06] MEDS: Ketorolac 0.5% Ophth Soln 5 ML Bottle EYEBOTH SCH ×2 (16:53→21:16)
[2017-09-06] MEDS: Simvastatin 20 MG Tab PO SCH (21:13)
[2017-09-06] MEDS: TAMOXIFEN 20 MG PO SCH (21:15)
[2017-09-07] MEDS: methylPREDNISolone Sodium Succinate 125 MG/2 ML SDV IVPUSH SCH (06:03)
--- NOTE | 2017-09-07 08:20 | CT ---
CT chest Technique: Multiple axial sections through the chest were obtained. Intravenous contrast was utilized. Study has been performed as a pulmonary angiogram protocol. Comparison: No prior chest imaging is available. Findings: Pulmonary arteries are fairly well-opacified. No filling defects are seen to indicate pulmonary embolism. Mediastinum and hilar regions show no adenopathy or mass. Small bilateral pleural effusions are seen. No pericardial thickening is seen. Perivascular thickening is seen with alveolar perihilar densities which are suspicious for pulmonary vascular congestion and pulmonary edema. Visualized upper abdominal structures shows previous cholecystectomy. Mild coronary artery calcification is seen. Impression: 1. Small bilateral pleural effusions. Perivascular thickening which likely represents pulmonary vascular congestion with patchy perihilar alveolar densities compatible with pulmonary edema. Please correlate if patient has acute cardiac event as an etiology. 2. No findings of pulmonary embolism. Other incidental findings. Diagnostic code #5 I agree with preliminary report from [facility], finalized at 09/04/17, 6:11 PM Central Time
[2017-09-07] MEDS: Ketorolac 0.5% Ophth Soln 5 ML Bottle EYEBOTH SCH ×3 (09:12→21:16)
[2017-09-07] MEDS: Enoxaparin 100 MG/1 ML Syringe SUBCUT SCH ×2 (09:12→21:13)
[2017-09-07] MEDS: Losartan 100 MG Tab PO SCH ×2 (09:15→21:17)
[2017-09-07] MEDS: Sertraline 50 MG Tab PO SCH (09:16)
[2017-09-07] MEDS: Hydroxychloroquine 200 MG Tab PO SCH ×2 (09:16→21:17)
[2017-09-07] MEDS: PREDNISOLONE ACETATE 1% EYERT SCH ×3 (09:16→21:26)
[2017-09-07] MEDS: Acetaminophen 325 MG Tab PO PRN ×2 (10:57→21:39)
--- NOTE | 2017-09-07 11:15 | CR ---
Chest: Two views of the chest were obtained. Comparison: Prior chest CT performed on the same day (4:35 PM). Heart size at the upper limits of normal. Pulmonary vessels are congested with early alveolar edema within the right perihilar region. Bony structures are unremarkable. Degenerative spurring is noted within the spine. Impression: 1. Findings felt compatible with pulmonary vascular congestion with early right-sided pulmonary edema. Diagnostic code #3
--- NOTE | 2017-09-07 11:28 | CR ---
Chest: Two views of the chest were obtained. Comparison: Prior chest x-ray of 09/04/17. Heart size slightly enlarged. Upper mediastinum is normal. Pulmonary vessels are congested but findings are improved from previous exam. Degenerative spurring is noted within the spine. Impression: 1. Mild pulmonary vascular congestion asymmetrically worse on the right side. Findings are felt to be improved from most recent chest x-ray. Diagnostic code #3 I agree with preliminary report from [facility], finalized at 09/05/17, 11:15 AM Central Time
--- NOTE | 2017-09-07 11:29 | PCM.PN ---
<Lela Man - Last Filed: 09/07/17 12:35> - General Info Date of Service: 09/07/17 Admission Dx/Problem (Free Text): Admission Diagnosis/Problem Admission Diagnosis/Problem Congestive heart failure Subjective Update: In to see Maryellen. She is laying comfortably in bed. She is no longer requiring supplemental O2. She reports her breathing has improved, and she feels much better. She denies any GI/ issues. Functional Status: Reports: Pain Controlled, Tolerating Diet, Ambulating, Urinating - Review of Systems General: Reports: Weakness (mild, improved). Denies: Fever HEENT: Reports: No Symptoms. Denies: Sinus Congestion, Sore Throat Pulmonary: Reports: No Symptoms. Denies: Shortness of Breath, Cough Cardiovascular: Reports: Dyspnea on Exertion (mild, improved ). Denies: Chest Pain, Palpitations Gastrointestinal: Reports: No Symptoms. Denies: Abdominal Pain, Constipation, Diarrhea, Nausea, Vomiting Genitourinary: Reports: No Symptoms. Denies: Dysuria, Frequency, Burning Musculoskeletal: Reports: No Symptoms Skin: Reports: No Symptoms Neurological: Reports: No Symptoms. Denies: Confusion, Dizziness, Headache Psychiatric: Reports: No Symptoms. Denies: Confusion, Depression, Anxiety - Patient Data Vitals - Most Recent: Last Vital Signs Temp 98.1 F 09/07/17 09:13 Pulse 75 09/07/17 09:13 Resp 16 09/07/17 09:13 BP 148/62 H 09/07/17 09:15 Pulse Ox 97 09/07/17 09:13 Weight - Most Recent: 108.635 kg I&O - Last 24 Hours: Intake & Output 09/06/17 09/07/17 09/07/17 22:59 06:59 14:59 Intake Total 400 400 400 Output Total 350 450 Balance 50 -50 400 Lab Results Last 24 Hours: Laboratory Results - last 24 hr 09/07/17 09/07/17 09/07/17 Range/Units 05:59 05:59 05:59 WBC 9.22 (3.98-10.04) K/mm3 RBC 4.20 (3.98-5.22) M/mm3 Hgb 12.6 (11.2-15.7) gm/L Hct 38.3 (34.1-44.9) % MCV 91.2 (79.4-94.8) fl MCH 30.0 (25.6-32.2) pg MCHC 32.9 (32.2-35.5) g/dl RDW Std Deviation 42.3 (36.4-46.3) fL Plt Count 120 L (182-369) K/mm3 MPV 10.8 (9.4-12.3) fl Neut % (Auto) 82.9 H (34.0-71.1) % Lymph % (Auto) 11.1 L (19.3-51.7) % [place] % (Auto) 5.7 (4.7-12.5) % Eos % (Auto) 0 L (0.7-5.8) Baso % (Auto) 0.0 L (0.1-1.2) % Neut # (Auto) 7.64 H (1.56-6.13) K/mm3 Lymph # (Auto) 1.02 L (1.18-3.74) K/mm3 [place] # (Auto) 0.53 H (0.24-0.36) K/mm3 Eos # (Auto) 0.00 L (0.04-0.36) K/mm3 Baso # (Auto) 0.00 L (0.01-0.08) K/mm3 Sodium 142 (136-145) mEq/L Potassium 4.4 (3.5-5.1) mEq/L Chloride 107 (98-107) mEq/L Carbon Dioxide 27 (21-32) mEq/L Anion Gap 12.4 (5-15) BUN 18 (7-18) mg/dL Creatinine 0.9 (0.55-1.02) mg/dL Est Cr Clr Drug Dosing 47.32 mL/min Estimated GFR (MDRD) > 60 (>60) mL/min BUN/Creatinine Ratio 20.0 H (14-18) Glucose 162 H (80-115) mg/dL Hemoglobin A1c (4.50-6.20) % Lactic Acid 1.5 (0.4-2.0) mmol/L Calcium 8.3 L (8.5-10.1) mg/dL Magnesium 2.1 (1.8-2.4) mg/dl C-Reactive Protein 2.7 H* (<1.0) mg/dL 09/07/17 Range/Units 05:59 WBC (3.98-10.04) K/mm3 RBC (3.98-5.22) M/mm3 Hgb (11.2-15.7) gm/L Hct (34.1-44.9) % MCV (79.4-94.8) fl MCH (25.6-32.2) pg MCHC (32.2-35.5) g/dl RDW Std Deviation (36.4-46.3) fL Plt Count (182-369) K/mm3 MPV (9.4-12.3) fl Neut % (Auto) (34.0-71.1) % Lymph % (Auto) (19.3-51.7) % [place] % (Auto) (4.7-12.5) % Eos % (Auto) (0.7-5.8) Baso % (Auto) (0.1-1.2) % Neut # (Auto) (1.56-6.13) K/mm3 Lymph # (Auto) (1.18-3.74) K/mm3 [place] # (Auto) (0.24-0.36) K/mm3 Eos # (Auto) (0.04-0.36) K/mm3 Baso # (Auto) (0.01-0.08) K/mm3 Sodium (136-145) mEq/L Potassium (3.5-5.1) mEq/L Chloride (98-107) mEq/L Carbon Dioxide (21-32) mEq/L Anion Gap (5-15) BUN (7-18) mg/dL Creatinine (0.55-1.02) mg/dL Est Cr Clr Drug Dosing mL/min Estimated GFR (MDRD) (>60) mL/min BUN/Creatinine Ratio (14-18) Glucose (80-115) mg/dL Hemoglobin A1c 5.30 (4.50-6.20) % Lactic Acid (0.4-2.0) mmol/L Calcium (8.5-10.1) mg/dL Magnesium (1.8-2.4) mg/dl C-Reactive Protein (<1.0) mg/dL Med Orders - Current: Current Medications Acetaminophen (Tylenol) 650 mg PO Q6H PRN PRN Reason: Pain/Fever Last Admin: 09/07/17 10:57 Dose: 650 mg Albuterol/Ipratropium (Duoneb 3.0-0.5 Mg/3 Ml) 3 ml NEB QID PRN PRN Reason: Shortness of Breath Enoxaparin Sodium (Lovenox) 100 mg SUBCUT Q12H [facility] Last Admin: 09/07/17 09:12 Dose: 100 mg Hydroxychloroquine Sulfate (Plaquenil) 200 mg PO BID [facility] Last Admin: 09/07/17 09:16 Dose: 200 mg Ketorolac Tromethamine (Acular 0.5% Ophth Soln) 0 ml EYEBOTH TID [facility] Last Admin: 09/07/17 09:12 Dose: 1 drop Losartan Potassium (Cozaar) 50 mg PO BID [facility] Last Admin: 09/07/17 09:15 Dose: 50 mg Meclizine HCl (Antivert) 25 mg PO DAILY [facility] Last Admin: 09/07/17 09:14 Dose: 25 mg Ondansetron HCl (Zofran) 4 mg IVPUSH Q8H PRN PRN Reason: Nausea/Vomiting Prednisolone Acetate (Pred Forte 1% Ophth Susp) 0 ml EYERT TID [facility] Last Admin: 09/07/17 09:16 Dose: 1 drop Prednisone (Prednisone) 20 mg PO WITHBREAKFAST [facility] Sertraline HCl (Zoloft) 100 mg PO DAILY [facility] Last Admin: 09/07/17 09:16 Dose: 100 mg Simvastatin (Zocor) 20 mg PO BEDTIME [facility] Last Admin: 09/06/17 21:13 Dose: 20 mg Sodium Chloride (Saline Flush) 10 ml FLUSH ONETIME PRN PRN Reason: IV FLUSH Last Admin: 09/04/17 16:39 Dose: 10 ml Tamoxifen Citrate (Nolvadex) 0 mg PO BEDTIME [facility] Last Admin: 09/06/17 21:15 Dose: 20 mg Temazepam (Restoril) 7.5 mg PO BEDTIME PRN PRN Reason: Insomnia Discontinued Medications Calcium Gluconate (Calcium Gluconate) 1 gm IV ONETIME STA Stop: 09/04/17 17:34 Last Admin: 09/04/17 17:58 Dose: 1 gm Enoxaparin Sodium (Lovenox) 100 mg SUBCUT ONETIME ONE Stop: 09/04/17 16:17 Last Admin: 09/04/17 16:19 Dose: 100 mg Enoxaparin Sodium (Lovenox) 40 mg SUBCUT Q24H [facility] Last Admin: 09/04/17 22:11 Dose: Not Given Enoxaparin Sodium (Lovenox) 40 mg SUBCUT DAILY [facility] Last Admin: 09/05/17 08:38 Dose: 40 mg Furosemide (Lasix) 40 mg IVPUSH NOW ONE Stop: 09/04/17 17:37 Last Admin: 09/04/17 17:54 Dose: 40 mg Sodium Chloride (Normal Saline) 1,000 mls @ 150 mls/hr IV ASDIRECTED [facility] Last Admin: 09/04/17 16:22 Dose: 150 mls/hr Sodium Chloride (Normal Saline) 150 mls @ 150 mls/hr IV ASDIRECTED ONE Stop: 09/04/17 17:19 Last Admin: 09/04/17 21:29 Dose: Not Given Magnesium Sulfate 2 gm/ Premix 50 mls @ 50 mls/hr IV ONETIME ONE Stop: 09/04/17 18:30 Last Admin: 09/04/17 18:02 Dose: 50 mls/hr Magnesium Sulfate 4 gm/ Premix 100 mls @ 50 mls/hr IV ONETIME ONE Stop: 09/04/17 22:29 Last Admin: 09/04/17 21:57 Dose: 50 mls/hr Iopamidol (Isovue-370 (76%)) 100 ml IVPUSH ONETIME ONE Stop: 09/04/17 16:21 Last Admin: 09/04/17 16:38 Dose: 60 ml Iopamidol (Isovue-370 (76%)) 50 ml IVPUSH ONETIME ONE Stop: 09/04/17 16:24 Last Admin: 09/04/17 16:38 Dose: 10 ml Ketorolac Tromethamine (Acular 0.5% Ophth Soln) 0 ml EYEBOTH DAILY [facility] Last Admin: 09/06/17 09:23 Dose: 1 drop Methylprednisolone Sodium Succinate (Solu-Medrol) 125 mg IVPUSH DAILY [facility] Last Admin: 09/05/17 17:51 Dose: Not Given Methylprednisolone Sodium Succinate (Solu-Medrol) 125 mg IVPUSH Q12H [facility] Last Admin: 09/07/17 06:03 Dose: 125 mg Pneumococcal Polyvalent Vaccine (Pneumovax 23) 0.5 ml IM .ONCE ONE Stop: 09/05/17 02:02 Potassium Chloride (Klor-Con M20) 40 meq PO BID [facility] Stop: 09/06/17 09:01 Last Admin: 09/06/17 09:12 Dose: 40 meq Tamoxifen Citrate (Nolvadex) 0 mg PO DAILY [facility] Last Admin: 09/05/17 17:50 Dose: Not Given - Exam Quality Assessment: DVT Prophylaxis. No: Supplemental Oxygen General: Alert, Oriented, Cooperative, No Acute Distress HEENT: Pupils Equal, Pupils Reactive, EOMI, Mucous Membr. Moist/Balta Neck: Supple, Trachea Midline. No: Lymphadenopathy Lungs: Clear to Auscultation, Normal Respiratory Effort Cardiovascular: Regular Rate, Regular Rhythm, No Murmurs GI/Abdominal Exam: Normal Bowel Sounds, Soft (obese ), Non-Tender, No Distention (Female) Exam: Deferred Back Exam: Normal Inspection, Full Range of Motion Extremities: Normal Inspection, Normal Range of Motion, Pedal Edema (1+ b/l LE ) Peripheral Pulses: 1+: Posterior Tibial (L), Posterior Tibial (R), Dorsalis Pedis (L), Dorsalis Pedis (R), 2+: Radial (L), Radial (R) Skin: Warm, Dry, Intact Neurological: No New Focal Deficit, Strength Equal Bilateral, Cranial Nerves Intact (grossly ) Psy/Mental Status: Alert, Normal Affect, Normal Mood - Problem List Review Problem List Initiated/Reviewed/Updated: Yes - My Orders Last 24 Hours: My Active Orders 09/08/17 07:00 predniSONE 20 mg PO WITHBREAKFAST - Plan Plan:: Impression/Plan: Acute: MCTD Exacerbation, improving * On Plaquenil; patient reports negative work up for Pulmonary HTN * Also on IV Steroids--> switched to oral (prednisone 20 mg daily), no indication for High dose IV steroids * CRP 2.7 today, was 6.9 * CTA showed pleural thickening with no PE * Will obtain 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 +/- NIYA/OHS * May need PFT to assess lung function * Negative CTA of chest after recent travel all the way from [place] * B/l Duplex U/S negative for DVT * Continue supplemental O2 --> she no longer requires supplemental O2 Morbid Obesity * Dietary consult for weight management * FT4 is normal with low level of TSH * Advised LSM Probable NIYA * Risk factors: Snoring, obesity * STOP BANG results indicate intermediate risk of NIYA; patient reports that she has a family hx of snoring with no apnea (her brother was worked up for NIYA and did not have NIYA) * Recommend outpatient sleep study Hyperglycemia * BG mildly elevated (107-162) during admission * Hgb A1c 5.3 * She is on steroids * Monitor Resolved: Hypomagnesemia * 1.4 in ED, improved to 3.0 * Received repletion * Monitor Hypokalemia * 3.4 in ED, improved to 4.5 * Received repletion * Monitor Chronic: History of breast cancer on Tamoxifen Hypertension Hyperlipidemia Plan: She is clinically stable --> anticipated discharge tomorrow, 09/08/17 Stop infectious work up; she is afebrile w/o leukocytosis Pulmonary assessment Mycoplasma Pneumonia Ag negative Solumedrol 125 mg IV q 12H--> Oral Prednisone V/Q 09/07/2017--> cancelled; CTA is more accurate than V/Q scan and already showed no PE Obtain clinic notes/2D echo performed May 2017 [place] Routine AM labs DVT/GI prophylaxis: Lovenox SubQ and SUZANNE hose/H2B LOS anticipate > 96 hrs due to slow response to treatment <Chris Gudino T - Last Filed: 09/07/17 12:56> - Patient Data Vitals - Most Recent: Last Vital Signs Temp 37.3 C 09/07/17 12:13 Pulse 60 09/07/17 12:13 Resp 14 09/07/17 12:13 BP 137/61 09/07/17 12:13 Pulse Ox 96 09/07/17 12:13 I&O - Last 24 Hours: Intake & Output 09/06/17 09/07/17 09/07/17 22:59 06:59 14:59 Intake Total 400 400 400 Output Total 350 450 Balance 50 -50 400 Lab Results Last 24 Hours: Laboratory Results - last 24 hr 09/07/17 09/07/17 09/07/17 Range/Units 05:59 05:59 05:59 WBC 9.22 (3.98-10.04) K/mm3 RBC 4.20 (3.98-5.22) M/mm3 Hgb 12.6 (11.2-15.7) gm/L Hct 38.3 (34.1-44.9) % MCV 91.2 (79.4-94.8) fl MCH 30.0 (25.6-32.2) pg MCHC 32.9 (32.2-35.5) g/dl RDW Std Deviation 42.3 (36.4-46.3) fL Plt Count 120 L (182-369) K/mm3 MPV 10.8 (9.4-12.3) fl Neut % (Auto) 82.9 H (34.0-71.1) % Lymph % (Auto) 11.1 L (19.3-51.7) % [place] % (Auto) 5.7 (4.7-12.5) % Eos % (Auto) 0 L (0.7-5.8) Baso % (Auto) 0.0 L (0.1-1.2) % Neut # (Auto) 7.64 H (1.56-6.13) K/mm3 Lymph # (Auto) 1.02 L (1.18-3.74) K/mm3 [place] # (Auto) 0.53 H (0.24-0.36) K/mm3 Eos # (Auto) 0.00 L (0.04-0.36) K/mm3 Baso # (Auto) 0.00 L (0.01-0.08) K/mm3 Sodium 142 (136-145) mEq/L Potassium 4.4 (3.5-5.1) mEq/L Chloride 107 (98-107) mEq/L Carbon Dioxide 27 (21-32) mEq/L Anion Gap 12.4 (5-15) BUN 18 (7-18) mg/dL Creatinine 0.9 (0.55-1.02) mg/dL Est Cr Clr Drug Dosing 47.32 mL/min Estimated GFR (MDRD) > 60 (>60) mL/min BUN/Creatinine Ratio 20.0 H (14-18) Glucose 162 H (80-115) mg/dL Hemoglobin A1c (4.50-6.20) % Lactic Acid 1.5 (0.4-2.0) mmol/L Calcium 8.3 L (8.5-10.1) mg/dL Magnesium 2.1 (1.8-2.4) mg/dl C-Reactive Protein 2.7 H* (<1.0) mg/dL 09/07/17 Range/Units 05:59 WBC (3.98-10.04) K/mm3 RBC (3.98-5.22) M/mm3 Hgb (11.2-15.7) gm/L Hct (34.1-44.9) % MCV (79.4-94.8) fl MCH (25.6-32.2) pg MCHC (32.2-35.5) g/dl RDW Std Deviation (36.4-46.3) fL Plt Count (182-369) K/mm3 MPV (9.4-12.3) fl Neut % (Auto) (34.0-71.1) % Lymph % (Auto) (19.3-51.7) % [place] % (Auto) (4.7-12.5) % Eos % (Auto) (0.7-5.8) Baso % (Auto) (0.1-1.2) % Neut # (Auto) (1.56-6.13) K/mm3 Lymph # (Auto) (1.18-3.74) K/mm3 [place] # (Auto) (0.24-0.36) K/mm3 Eos # (Auto) (0.04-0.36) K/mm3 Baso # (Auto) (0.01-0.08) K/mm3 Sodium (136-145) mEq/L Potassium (3.5-5.1) mEq/L Chloride (98-107) mEq/L Carbon Dioxide (21-32) mEq/L Anion Gap (5-15) BUN (7-18) mg/dL Creatinine (0.55-1.02) mg/dL Est Cr Clr Drug Dosing mL/min Estimated GFR (MDRD) (>60) mL/min BUN/Creatinine Ratio (14-18) Glucose (80-115) mg/dL Hemoglobin A1c 5.30 (4.50-6.20) % Lactic Acid (0.4-2.0) mmol/L Calcium (8.5-10.1) mg/dL Magnesium (1.8-2.4) mg/dl C-Reactive Protein (<1.0) mg/dL Med Orders - Current: Current Medications Acetaminophen (Tylenol) 650 mg PO Q6H PRN PRN Reason: Pain/Fever Last Admin: 09/07/17 10:57 Dose: 650 mg Albuterol/Ipratropium (Duoneb 3.0-0.5 Mg/3 Ml) 3 ml NEB QID PRN PRN Reason: Shortness of Breath Enoxaparin Sodium (Lovenox) 100 mg SUBCUT Q12H [facility] Last Admin: 09/07/17 09:12 Dose: 100 mg Hydroxychloroquine Sulfate (Plaquenil) 200 mg PO BID [facility] Last Admin: 09/07/17 09:16 Dose: 200 mg Ketorolac Tromethamine (Acular 0.5% Ophth Soln) 0 ml EYEBOTH TID [facility] Last Admin: 09/07/17 09:12 Dose: 1 drop Losartan Potassium (Cozaar) 50 mg PO BID [facility] Last Admin: 09/07/17 09:15 Dose: 50 mg Meclizine HCl (Antivert) 25 mg PO DAILY [facility] Last Admin: 09/07/17 09:14 Dose: 25 mg Ondansetron HCl (Zofran) 4 mg IVPUSH Q8H PRN PRN Reason: Nausea/Vomiting Prednisolone Acetate (Pred Forte 1% Ophth Susp) 0 ml EYERT TID [facility] Last Admin: 09/07/17 09:16 Dose: 1 drop Prednisone (Prednisone) 20 mg PO WITHBREAKFAST [facility] Sertraline HCl (Zoloft) 100 mg PO DAILY [facility] Last Admin: 09/07/17 09:16 Dose: 100 mg Simvastatin (Zocor) 20 mg PO BEDTIME [facility] Last Admin: 09/06/17 21:13 Dose: 20 mg Sodium Chloride (Saline Flush) 10 ml FLUSH ONETIME PRN PRN Reason: IV FLUSH Last Admin: 09/04/17 16:39 Dose: 10 ml Tamoxifen Citrate (Nolvadex) 0 mg PO BEDTIME [facility] Last Admin: 09/06/17 21:15 Dose: 20 mg Temazepam (Restoril) 7.5 mg PO BEDTIME PRN PRN Reason: Insomnia Discontinued Medications Calcium Gluconate (Calcium Gluconate) 1 gm IV ONETIME STA Stop: 09/04/17 17:34 Last Admin: 09/04/17 17:58 Dose: 1 gm Enoxaparin Sodium (Lovenox) 100 mg SUBCUT ONETIME ONE Stop: 09/04/17 16:17 Last Admin: 09/04/17 16:19 Dose: 100 mg Enoxaparin Sodium (Lovenox) 40 mg SUBCUT Q24H [facility] Last Admin: 09/04/17 22:11 Dose: Not Given Enoxaparin Sodium (Lovenox) 40 mg SUBCUT DAILY [facility] Last Admin: 09/05/17 08:38 Dose: 40 mg Furosemide (Lasix) 40 mg IVPUSH NOW ONE Stop: 09/04/17 17:37 Last Admin: 09/04/17 17:54 Dose: 40 mg Sodium Chloride (Normal Saline) 1,000 mls @ 150 mls/hr IV ASDIRECTED [facility] Last Admin: 09/04/17 16:22 Dose: 150 mls/hr Sodium Chloride (Normal Saline) 150 mls @ 150 mls/hr IV ASDIRECTED ONE Stop: 09/04/17 17:19 Last Admin: 09/04/17 21:29 Dose: Not Given Magnesium Sulfate 2 gm/ Premix 50 mls @ 50 mls/hr IV ONETIME ONE Stop: 09/04/17 18:30 Last Admin: 09/04/17 18:02 Dose: 50 mls/hr Magnesium Sulfate 4 gm/ Premix 100 mls @ 50 mls/hr IV ONETIME ONE Stop: 09/04/17 22:29 Last Admin: 09/04/17 21:57 Dose: 50 mls/hr Iopamidol (Isovue-370 (76%)) 100 ml IVPUSH ONETIME ONE Stop: 09/04/17 16:21 Last Admin: 09/04/17 16:38 Dose: 60 ml Iopamidol (Isovue-370 (76%)) 50 ml IVPUSH ONETIME ONE Stop: 09/04/17 16:24 Last Admin: 09/04/17 16:38 Dose: 10 ml Ketorolac Tromethamine (Acular 0.5% Ophth Soln) 0 ml EYEBOTH DAILY [facility] Last Admin: 09/06/17 09:23 Dose: 1 drop Methylprednisolone Sodium Succinate (Solu-Medrol) 125 mg IVPUSH DAILY [facility] Last Admin: 09/05/17 17:51 Dose: Not Given Methylprednisolone Sodium Succinate (Solu-Medrol) 125 mg IVPUSH Q12H [facility] Last Admin: 09/07/17 06:03 Dose: 125 mg Pneumococcal Polyvalent Vaccine (Pneumovax 23) 0.5 ml IM .ONCE ONE Stop: 09/05/17 02:02 Potassium Chloride (Klor-Con M20) 40 meq PO BID [facility] Stop: 09/06/17 09:01 Last Admin: 09/06/17 09:12 Dose: 40 meq Tamoxifen Citrate (Nolvadex) 0 mg PO DAILY [facility] Last Admin: 09/05/17 17:50 Dose: Not Given - My Orders Last 24 Hours: My Active Orders 09/06/17 15:00 Ketorolac [Acular 0.5% Ophth Soln] 0 ml EYEBOTH TID 09/06/17 Dinner Fluid Restriction [DIET] Low Cholesterol Diet [DIET] Regular Diet [DIET] - Plan Plan:: The patient was seen and examined at bedside in concert with the PA student. The assessment and plans were discussed and agreed upon with me.
--- NOTE | 2017-09-07 12:26 | US ---
Bilateral lower extremity deep venous ultrasound: Duplex and color flow imaging was obtained of the right left common femoral, proximal greater saphenous, superficial femoral, popliteal, posterior tibial and peroneal veins. Findings: Peroneal veins on both sides are not well seen for compression but appear to be seen with augmentation. Other veins show normal phasic flow, augmentation and compression is seen. Impression: 1. No evidence of deep venous thrombosis is seen within either the right or left lower extremities. Diagnostic code #1 I agree with preliminary report from [facility], finalized at 09/05/17, 11:17 AM Central Time
[2017-09-07] MEDS: Simvastatin 20 MG Tab PO SCH (21:15)
[2017-09-07] MEDS: TAMOXIFEN 20 MG PO SCH (21:26)
[2017-09-08] MEDS ORDERED: predniSONE 20 MG Tab PO SCH (07:00)
[2017-09-08] MEDS ORDERED: Ketorolac 0.5% Ophth Soln 5 ML Bottle EYERT SCH (07:54)
[2017-09-08] MEDS: Hydroxychloroquine 200 MG Tab PO SCH (08:48)
[2017-09-08] MEDS: Enoxaparin 100 MG/1 ML Syringe SUBCUT SCH (08:49)
[2017-09-08] MEDS: Losartan 100 MG Tab PO SCH (08:49)
[2017-09-08] MEDS: Sertraline 50 MG Tab PO SCH (08:49)
[2017-09-08] MEDS: PREDNISOLONE ACETATE 1% EYERT SCH (08:51)
--- NOTE | 2017-09-08 12:12 | PCM.DCSUM1 ---
<Lela Man - Last Filed: 09/08/17 12:49> Discharge Summary - Hospital Course HPI Initial Comments: 66 year old female with a PMH of MCTD (on Plaquenil) presents with several complaints. The patient's primary concern was lower extremity swelling; she subsequently took her brother's diuretic. This was followed by a series of symptoms including N/V, and chest pain. She was afebrile, and there was no change in appetite. Urine output increased as expected after the diuretic; however, later she reported abrupt SOB, elevated HR and chest pain. In the ED, a d-dimer was not done, but the CTA of the chest was negative for a PE. Diagnosis: Stroke: No Modified [place] Scale: No Symptoms at All Modified Dani Scale Score: 0 - Discharge Data Discharge Date: 09/08/17 Discharge Disposition: Home, Self-Care 01 Condition: Good - Discharge Diagnosis/Problem(s) (1) Pleural effusion, bilateral SNOMED Code(s): 053041601 ICD Code: J90 - PLEURAL EFFUSION, NOT ELSEWHERE CLASSIFIED Status: Acute Priority: Low Problem Details: small, related to MCTD - Patient Summary/Data Operative Procedure(s) Performed: None Complications: None Consults: Consultations 09/05/17 11:14 Consult to Occupational Therapy [OT Evaluation and Treatment] [CONS] Routine Consult to Physical Therapy [PT Evaluation and Treatment] [CONS] Routine 09/07/17 11:39 Consult to Rubber Boots And Shoes Repairer [CONS] Routine Labs Pending at D/C: None Recommended Follow-up Testing/Procedures: PCP in 1-2 weeks Outpatient sleep study Planned Operative Procedure(s) after DC: None Hospital Course: Impression/Plan: Acute: MCTD Exacerbation, improved * On Plaquenil; patient reports negative work up for Pulmonary HTN * Also on IV Steroids--> switched to oral (prednisone 20 mg daily), no indication for High dose IV steroids * CRP 0.7 today, was 2.7 yesterday * CTA showed pleural thickening with no PE * Will obtain recent 2D echo from her manager demand, Dr. Linares, in [place], [place] --> attempts made with no records received at discharge; patient reports Echo was negative Morbid Obesity * Dietary consult for weight management * FT4 is normal with low level of TSH * Advised LSM Probable NIYA * Risk factors: Snoring, obesity * STOP BANG results indicate intermediate risk of NIYA; patient reports that she has a family hx of snoring with no apnea (her brother was worked up for NIYA and did not have NIYA) * Recommend outpatient sleep study Hyperglycemia * BG mildly elevated (107-162) during admission * Hgb A1c 5.3 * She is on steroids * Monitor Resolved: Acute SOB w/ Elevated D-Dimer, resolved * 2/2 Pulmonary Insufficiency from MCTD +/- NIYA/OHS * May need PFT to assess lung function * Negative CTA of chest after recent travel all the way from [place] * B/l Duplex U/S negative for DVT * Continue supplemental O2 --> she no longer requires supplemental O2 Hypomagnesemia * 1.4 in ED, improved to 3.0 * Received repletion * Monitor Hypokalemia * 3.4 in ED, improved to 4.5 * Received repletion * Monitor Chronic: History of breast cancer on Tamoxifen Hypertension Hyperlipidemia Plan: She is clinically stable --> anticipated discharge tomorrow, 09/08/17 Stop infectious work up; she is afebrile w/o leukocytosis Pulmonary assessment Mycoplasma Pneumonia Ag and strep pneumo negative Solumedrol 125 mg IV q 12H--> Oral Prednisone V/Q 09/07/2017--> cancelled; CTA is more accurate than V/Q scan and already showed no PE Obtain clinic notes/2D echo performed May 2017 [place], [place] --> attempts made with no records received at discharge; patient reports Echo was negative Routine AM labs DVT/GI prophylaxis: Lovenox SubQ and SUZANNE hose/H2B LOS anticipate > 96 hrs due to slow response to treatment Hospital Course: Maryellen was admitted for MCTD exacerbation. She is chronically on Plaquenil. She has improved during her admission. Work-up in ED showed CBC remarkable for Ca 7.7 and this was repleted. Magnesium was low at 1.4 and this was also repleted. BNP was 233. CTA ordered in ED and was negative for PE but showed small b/l pleural effusions. CXR obtained in ED read as pulmonary vascular congestion with early right sided pulmonary edema. B/l duplex ultrasound was negative for DVT. High dose IV steroids were initiated and then changed to oral. She was initially on supplemental O2 but is no longer requiring this at discharge. Infectious work-up was negative. Attempted to obtain recent 2D echo from her manager demand, Dr. Linares, in [place], [place] but no records received at time of discharge; patient reports Echo was negative. Regarding patient's morbid obesity, thyroid work-up showed low TSH; recommend PCP evaluate this outpatient. Dietitian consulted for weight management education, and lifestyle modifications were advised. In addition to the aforementioned interventions, patient was also screened for NIYA with STOP BANG questionnaire. STOP BANG results indicate intermediate risk of NIYA; patient reports that she has a family hx of snoring with no apnea (her brother was worked up for NIYA and did not have NIYA). Recommend outpatient sleep study. Labs during admission significant for mild renal insufficiency which was stable during admission. Labs also significant for mild hyperglycemia. Hgb A1c assessed and was 5.3. Hyperglycemia likely related to patient receiving steroids. Recommend patient see PCP in 1-2 weeks. Patient was instructed to check vitals 3x/day and to keep log with the results. New/updated medications at discharge: famotidine 20 mg po daily and Medrol dose pack. Patient is stable and ready for discharge home today. Patient agreeable to this plan. - Patient Instructions Diet: Heart Healthy Diet, Usual Diet as Tolerated, Weight Loss Diet Activity: As Tolerated Driving: May Drive Today Showering/Bathing: May Shower Notify Provider of: Fever, Increased Pain, Nausea and/or Vomiting Other/Special Instructions: - Please take new medications as directed. - Resume all home medications and continue routine activities as tolerated. - Recommed lifestyle modications: eat properly, exercise regulary and lose weight. - Check vitals x3/day and show log on follow up appointment with your PCP. - Call or follow up with your PCP for any questions or concerns after discharge. - Follow up with your PCP in 1-2 weeks. - Come back or seek immediate care should your symptoms persist or get worse - Discharge Plan *PRESCRIPTION DRUG MONITORING PROGRAM REVIEWED*: No *COPY OF PRESCRIPTION DRUG MONITORING REPORT IN PATIENT ZANDRA: No Prescriptions/Med Rec: Famotidine 20 mg PO DAILY #15 tablet methylPREDNISolone [Medrol] 4 mg PO ASDIRECTED #1 tab.ds.pk Home Medications: Home Meds Cholecalciferol (Vitamin D3) [Vitamin D3] 1,000 unit PO DAILY 09/04/17 [History] Hydroxychloroquine [Plaquenil] 200 mg PO BID 09/04/17 [History] Ketorolac Tromethamine/Pf [Acuvail 0.45% Ophth Solution] 1 each OP TID 09/04/17 [History] Losartan [Cozaar] 100 mg PO DAILY 09/04/17 [History] Meclizine [Antivert] 25 mg PO DAILY 09/04/17 [History] Sertraline [Zoloft] 100 mg PO DAILY 09/04/17 [History] Ubidecarenone [Co Q-10] 200 mg PO DAILY 09/04/17 [History] atorvaSTATin [Lipitor] 20 mg PO BEDTIME 09/04/17 [History] prednisoLONE Acetate [Prednisolone Acetate] 1 drop OP TID 09/04/17 [History] Tamoxifen Citrate 20 mg PO DAILY 09/05/17 [History] Famotidine 20 mg PO DAILY #15 tablet 09/08/17 [Rx] methylPREDNISolone [Medrol] 4 mg PO ASDIRECTED #1 tab.ds.pk 09/08/17 [Rx] Patient Handouts: Shortness of Breath, Adult, [id number], Hypomagnesemia, Hypocalcemia, Adult, Screening for Sleep Apnea, Obesity, Adult, [id number] Referrals: PCP,Not In Area [Primary Care Provider] - - Discharge Summary/Plan Comment DC Time >30 min.: Yes (45) - General Info Admission Dx/Problem (Free Text: Admission Diagnosis/Problem Admission Diagnosis/Problem Congestive heart failure Subjective Update: In to see Maryellen. She is sitting comfortably at bedside. She states she feels much better. She continue to no longer require supplemental O2. She states her breathing is stable. She is ready for discharge today. Functional Status: Reports: Pain Controlled, Tolerating Diet, Ambulating, Urinating - Review of Systems General: Reports: No Symptoms. Denies: Fever, Chills HEENT: Reports: No Symptoms Pulmonary: Reports: No Symptoms. Denies: Shortness of Breath, Cough Cardiovascular: Reports: Dyspnea on Exertion (mild and stable ). Denies: Chest Pain, Palpitations Gastrointestinal: Reports: No Symptoms. Denies: Abdominal Pain, Constipation, Diarrhea, Nausea, Vomiting Genitourinary: Reports: No Symptoms. Denies: Dysuria, Frequency, Burning Musculoskeletal: Reports: No Symptoms, Joint Pain (stable with hx of MCTD ) Skin: Reports: No Symptoms Neurological: Reports: No Symptoms. Denies: Confusion, Dizziness, Headache, Numbness Psychiatric: Reports: No Symptoms. Denies: Confusion, Depression, Anxiety - Patient Data Vitals - Most Recent: Last Vital Signs Temp 99.1 F 09/08/17 11:24 Pulse 57 L 09/08/17 11:24 Resp 20 09/08/17 11:24 BP 132/97 H 09/08/17 11:24 Pulse Ox 97 09/08/17 11:24 Weight - Most Recent: 107.819 kg I&O - Last 24 hours: Intake & Output 09/07/17 09/08/17 09/08/17 22:59 06:59 14:59 Intake Total 1040 125 360 Output Total 650 325 Balance 390 -200 360 Lab Results - Last 24 hrs: Laboratory Results - last 24 hr 09/08/17 09/08/17 09/08/17 Range/Units 06:40 06:40 06:40 WBC 9.21 (3.98-10.04) K/mm3 RBC 4.23 (3.98-5.22) M/mm3 Hgb 12.6 (11.2-15.7) gm/L Hct 38.7 (34.1-44.9) % MCV 91.5 (79.4-94.8) fl MCH 29.8 (25.6-32.2) pg MCHC 32.6 (32.2-35.5) g/dl RDW Std Deviation 41.9 (36.4-46.3) fL Plt Count 135 L (182-369) K/mm3 MPV 11.2 (9.4-12.3) fl Neut % (Auto) 61.6 (34.0-71.1) % Lymph % (Auto) 29.3 (19.3-51.7) % [place] % (Auto) 7.7 (4.7-12.5) % Eos % (Auto) 0.1 L (0.7-5.8) Baso % (Auto) 0.1 (0.1-1.2) % Neut # (Auto) 5.67 (1.56-6.13) K/mm3 Lymph # (Auto) 2.70 (1.18-3.74) K/mm3 [place] # (Auto) 0.71 H (0.24-0.36) K/mm3 Eos # (Auto) 0.01 L (0.04-0.36) K/mm3 Baso # (Auto) 0.01 (0.01-0.08) K/mm3 Manual Slide Review Abnormal smear Sodium 144 (136-145) mEq/L Potassium 3.8 (3.5-5.1) mEq/L Chloride 108 H (98-107) mEq/L Carbon Dioxide 31 (21-32) mEq/L Anion Gap 8.8 (5-15) BUN 22 H (7-18) mg/dL Creatinine 1.0 (0.55-1.02) mg/dL Est Cr Clr Drug Dosing 42.59 mL/min Estimated GFR (MDRD) 55 (>60) mL/min BUN/Creatinine Ratio 22.0 H (14-18) Glucose 95 (80-115) mg/dL Lactic Acid 1.4 (0.4-2.0) mmol/L Calcium 8.4 L (8.5-10.1) mg/dL Magnesium 1.9 (1.8-2.4) mg/dl C-Reactive Protein 0.7 (<1.0) mg/dL DEE Results - Last 24 hrs: Microbiology 09/05/17 01:40 Streptococcus pneumoniae Antigen (M - Final Urine 09/04/17 21:10 Respiratory Virus Panel (PCR) - Final Nasopharyngeal Swab Med Orders - Current: Current Medications Acetaminophen (Tylenol) 650 mg PO Q6H PRN PRN Reason: Pain/Fever Last Admin: 09/07/17 21:39 Dose: 650 mg Albuterol/Ipratropium (Duoneb 3.0-0.5 Mg/3 Ml) 3 ml NEB QID PRN PRN Reason: Shortness of Breath Enoxaparin Sodium (Lovenox) 100 mg SUBCUT Q12H [facility] Last Admin: 09/08/17 08:49 Dose: 100 mg Hydroxychloroquine Sulfate (Plaquenil) 200 mg PO BID [facility] Last Admin: 09/08/17 08:48 Dose: 200 mg Ketorolac Tromethamine (Acular 0.5% Ophth Soln) 0 ml EYERT TID [facility] Last Admin: 09/08/17 08:50 Dose: 1 drop Losartan Potassium (Cozaar) 50 mg PO BID [facility] Last Admin: 09/08/17 08:49 Dose: 50 mg Meclizine HCl (Antivert) 25 mg PO DAILY [facility] Last Admin: 09/08/17 08:49 Dose: 25 mg Ondansetron HCl (Zofran) 4 mg IVPUSH Q8H PRN PRN Reason: Nausea/Vomiting Prednisolone Acetate (Pred Forte 1% Ophth Susp) 0 ml EYERT TID [facility] Last Admin: 09/08/17 08:51 Dose: 1 drop Prednisone (Prednisone) 20 mg PO WITHBREAKFAST [facility] Last Admin: 09/08/17 06:25 Dose: 20 mg Sertraline HCl (Zoloft) 100 mg PO DAILY [facility] Last Admin: 09/08/17 08:49 Dose: 100 mg Simvastatin (Zocor) 20 mg PO BEDTIME [facility] Last Admin: 09/07/17 21:15 Dose: 20 mg Sodium Chloride (Saline Flush) 10 ml FLUSH ONETIME PRN PRN Reason: IV FLUSH Last Admin: 09/04/17 16:39 Dose: 10 ml Tamoxifen Citrate (Nolvadex) 0 mg PO BEDTIME [facility] Last Admin: 09/07/17 21:26 Dose: 20 mg Temazepam (Restoril) 7.5 mg PO BEDTIME PRN PRN Reason: Insomnia Discontinued Medications Calcium Gluconate (Calcium Gluconate) 1 gm IV ONETIME STA Stop: 09/04/17 17:34 Last Admin: 09/04/17 17:58 Dose: 1 gm Enoxaparin Sodium (Lovenox) 100 mg SUBCUT ONETIME ONE Stop: 09/04/17 16:17 Last Admin: 09/04/17 16:19 Dose: 100 mg Enoxaparin Sodium (Lovenox) 40 mg SUBCUT Q24H [facility] Last Admin: 09/04/17 22:11 Dose: Not Given Enoxaparin Sodium (Lovenox) 40 mg SUBCUT DAILY [facility] Last Admin: 09/05/17 08:38 Dose: 40 mg Furosemide (Lasix) 40 mg IVPUSH NOW ONE Stop: 09/04/17 17:37 Last Admin: 09/04/17 17:54 Dose: 40 mg Sodium Chloride (Normal Saline) 1,000 mls @ 150 mls/hr IV ASDIRECTED [facility] Last Admin: 09/04/17 16:22 Dose: 150 mls/hr Sodium Chloride (Normal Saline) 150 mls @ 150 mls/hr IV ASDIRECTED ONE Stop: 09/04/17 17:19 Last Admin: 09/04/17 21:29 Dose: Not Given Magnesium Sulfate 2 gm/ Premix 50 mls @ 50 mls/hr IV ONETIME ONE Stop: 09/04/17 18:30 Last Admin: 09/04/17 18:02 Dose: 50 mls/hr Magnesium Sulfate 4 gm/ Premix 100 mls @ 50 mls/hr IV ONETIME ONE Stop: 09/04/17 22:29 Last Admin: 09/04/17 21:57 Dose: 50 mls/hr Iopamidol (Isovue-370 (76%)) 100 ml IVPUSH ONETIME ONE Stop: 09/04/17 16:21 Last Admin: 09/04/17 16:38 Dose: 60 ml Iopamidol (Isovue-370 (76%)) 50 ml IVPUSH ONETIME ONE Stop: 09/04/17 16:24 Last Admin: 09/04/17 16:38 Dose: 10 ml Ketorolac Tromethamine (Acular 0.5% Ophth Soln) 0 ml EYEBOTH DAILY [facility] Last Admin: 09/06/17 09:23 Dose: 1 drop Ketorolac Tromethamine (Acular 0.5% Ophth Soln) 0 ml EYEBOTH TID [facility] Last Admin: 09/07/17 21:16 Dose: 1 drop Methylprednisolone Sodium Succinate (Solu-Medrol) 125 mg IVPUSH DAILY [facility] Last Admin: 09/05/17 17:51 Dose: Not Given Methylprednisolone Sodium Succinate (Solu-Medrol) 125 mg IVPUSH Q12H [facility] Last Admin: 09/07/17 06:03 Dose: 125 mg Pneumococcal Polyvalent Vaccine (Pneumovax 23) 0.5 ml IM .ONCE ONE Stop: 09/05/17 02:02 Last Admin: 09/08/17 11:59 Dose: 0.5 ml Potassium Chloride (Klor-Con M20) 40 meq PO BID [facility] Stop: 09/06/17 09:01 Last Admin: 09/06/17 09:12 Dose: 40 meq Tamoxifen Citrate (Nolvadex) 0 mg PO DAILY [facility] Last Admin: 09/05/17 17:50 Dose: Not Given - Exam Quality Assessment: Reports: DVT Prophylaxis (SUZANNE oliva present ). Denies: Supplemental Oxygen General: Reports: Alert, Oriented, Cooperative, No Acute Distress HEENT: Reports: Pupils Equal, Pupils Reactive, EOMI, Mucous Membr. Moist/[place] Neck: Reports: Supple, Trachea Midline. Denies: Lymphadenopathy Lungs: Reports: Clear to Auscultation, Normal Respiratory Effort Cardiovascular: Reports: Regular Rate, Regular Rhythm, No Murmurs GI/Abdominal Exam: Normal Bowel Sounds, Soft (obese ), Non-Tender, No Distention (Female) Exam: Deferred Rectal (Female) Exam: Deferred Back Exam: Reports: Normal Inspection, Full Range of Motion Extremities: Normal Inspection, Normal Range of Motion, Other (Tenderness with palpation on left LE ) Skin: Reports: Warm, Dry, Intact Neurological: Reports: No New Focal Deficit, Strength Equal Bilateral, Cranial Nerves Intact (grossly) Psy/Mental Status: Reports: Alert, Normal Affect, Normal Mood <Chris Gudino T - Last Filed: 09/08/17 15:55> Discharge Summary - Discharge Diagnosis/Problem(s) (1) Mixed connective tissue disease SNOMED Code(s): 169679791 ICD Code: M35.1 - OTHER OVERLAP SYNDROMES Status: Acute (2) SOB (shortness of breath) on exertion SNOMED Code(s): 04831610 ICD Code: R06.02 - SHORTNESS OF BREATH Status: Resolved (3) Elevated d-dimer SNOMED Code(s): 396466082 ICD Code: R79.89 - OTHER SPECIFIED ABNORMAL FINDINGS OF BLOOD CHEMISTRY Status: Acute (4) Hypomagnesemia SNOMED Code(s): 137820881 ICD Code: E83.42 - HYPOMAGNESEMIA Status: Resolved (5) Hypokalemia SNOMED Code(s): 12535983 ICD Code: E87.6 - HYPOKALEMIA Status: Resolved (6) NIYA (obstructive sleep apnea) SNOMED Code(s): 47419109 ICD Code: G47.33 - OBSTRUCTIVE SLEEP APNEA (ADULT) (PEDIATRIC) Status: Chronic (7) Hyperglycemia, drug-induced SNOMED Code(s): 313416537 ICD Code: R73.9 - HYPERGLYCEMIA, UNSPECIFIED; T50.905A - ADVERSE EFFECT OF UNSP DRUG/MEDS/BIOL SUBST, INIT Status: Acute - Patient Summary/Data Consults: Consultations 09/05/17 11:14 Consult to Occupational Therapy [OT Evaluation and Treatment] [CONS] Routine Consult to Physical Therapy [PT Evaluation and Treatment] [CONS] Routine 09/07/17 11:39 Consult to Rubber Boots And Shoes Repairer [CONS] Routine Hospital Course: The patient was seen and examined at bedside by me in concert with the PA student. The discharge assessment and plans were discussed and agreed upon with me. - Patient Data Vitals - Most Recent: Last Vital Signs Temp 37.3 C 09/08/17 11:24 Pulse 57 L 09/08/17 11:24 Resp 20 09/08/17 11:24 BP 132/97 H 09/08/17 11:24 Pulse Ox 97 09/08/17 11:24 I&O - Last 24 hours: Intake & Output 09/08/17 09/08/17 09/08/17 06:59 14:59 22:59 Intake Total 125 560 Output Total 325 Balance -200 560 Lab Results - Last 24 hrs: Laboratory Results - last 24 hr 09/08/17 09/08/17 09/08/17 Range/Units 06:40 06:40 06:40 WBC 9.21 (3.98-10.04) K/mm3 RBC 4.23 (3.98-5.22) M/mm3 Hgb 12.6 (11.2-15.7) gm/L Hct 38.7 (34.1-44.9) % MCV 91.5 (79.4-94.8) fl MCH 29.8 (25.6-32.2) pg MCHC 32.6 (32.2-35.5) g/dl RDW Std Deviation 41.9 (36.4-46.3) fL Plt Count 135 L (182-369) K/mm3 MPV 11.2 (9.4-12.3) fl Neut % (Auto) 61.6 (34.0-71.1) % Lymph % (Auto) 29.3 (19.3-51.7) % [place] % (Auto) 7.7 (4.7-12.5) % Eos % (Auto) 0.1 L (0.7-5.8) Baso % (Auto) 0.1 (0.1-1.2) % Neut # (Auto) 5.67 (1.56-6.13) K/mm3 Lymph # (Auto) 2.70 (1.18-3.74) K/mm3 [place] # (Auto) 0.71 H (0.24-0.36) K/mm3 Eos # (Auto) 0.01 L (0.04-0.36) K/mm3 Baso # (Auto) 0.01 (0.01-0.08) K/mm3 Manual Slide Review Abnormal smear Sodium 144 (136-145) mEq/L Potassium 3.8 (3.5-5.1) mEq/L Chloride 108 H (98-107) mEq/L Carbon Dioxide 31 (21-32) mEq/L Anion Gap 8.8 (5-15) BUN 22 H (7-18) mg/dL Creatinine 1.0 (0.55-1.02) mg/dL Est Cr Clr Drug Dosing 42.59 mL/min Estimated GFR (MDRD) 55 (>60) mL/min BUN/Creatinine Ratio 22.0 H (14-18) Glucose 95 (80-115) mg/dL Lactic Acid 1.4 (0.4-2.0) mmol/L Calcium 8.4 L (8.5-10.1) mg/dL Magnesium 1.9 (1.8-2.4) mg/dl C-Reactive Protein 0.7 (<1.0) mg/dL DEE Results - Last 24 hrs: Microbiology 09/05/17 01:40 Streptococcus pneumoniae Antigen (M - Final Urine 09/04/17 21:10 Respiratory Virus Panel (PCR) - Final Nasopharyngeal Swab Med Orders - Current: Current Medications Acetaminophen (Tylenol) 650 mg PO Q6H PRN PRN Reason: Pain/Fever Last Admin: 09/07/17 21:39 Dose: 650 mg Albuterol/Ipratropium (Duoneb 3.0-0.5 Mg/3 Ml) 3 ml NEB QID PRN PRN Reason: Shortness of Breath Enoxaparin Sodium (Lovenox) 100 mg SUBCUT Q12H [facility] Last Admin: 09/08/17 08:49 Dose: 100 mg Hydroxychloroquine Sulfate (Plaquenil) 200 mg PO BID [facility] Last Admin: 09/08/17 08:48 Dose: 200 mg Ketorolac Tromethamine (Acular 0.5% Ophth Soln) 0 ml EYERT TID [facility] Last Admin: 09/08/17 08:50 Dose: 1 drop Losartan Potassium (Cozaar) 50 mg PO BID [facility] Last Admin: 09/08/17 08:49 Dose: 50 mg Meclizine HCl (Antivert) 25 mg PO DAILY [facility] Last Admin: 09/08/17 08:49 Dose: 25 mg Ondansetron HCl (Zofran) 4 mg IVPUSH Q8H PRN PRN Reason: Nausea/Vomiting Prednisolone Acetate (Pred Forte 1% Ophth Susp) 0 ml EYERT TID [facility] Last Admin: 09/08/17 08:51 Dose: 1 drop Prednisone (Prednisone) 20 mg PO WITHBREAKFAST [facility] Last Admin: 09/08/17 06:25 Dose: 20 mg Sertraline HCl (Zoloft) 100 mg PO DAILY [facility] Last Admin: 09/08/17 08:49 Dose: 100 mg Simvastatin (Zocor) 20 mg PO BEDTIME [facility] Last Admin: 09/07/17 21:15 Dose: 20 mg Sodium Chloride (Saline Flush) 10 ml FLUSH ONETIME PRN PRN Reason: IV FLUSH Last Admin: 09/04/17 16:39 Dose: 10 ml Tamoxifen Citrate (Nolvadex) 0 mg PO BEDTIME [facility] Last Admin: 09/07/17 21:26 Dose: 20 mg Temazepam (Restoril) 7.5 mg PO BEDTIME PRN PRN Reason: Insomnia Discontinued Medications Calcium Gluconate (Calcium Gluconate) 1 gm IV ONETIME STA Stop: 09/04/17 17:34 Last Admin: 09/04/17 17:58 Dose: 1 gm Enoxaparin Sodium (Lovenox) 100 mg SUBCUT ONETIME ONE Stop: 09/04/17 16:17 Last Admin: 09/04/17 16:19 Dose: 100 mg Enoxaparin Sodium (Lovenox) 40 mg SUBCUT Q24H [facility] Last Admin: 09/04/17 22:11 Dose: Not Given Enoxaparin Sodium (Lovenox) 40 mg SUBCUT DAILY [facility] Last Admin: 09/05/17 08:38 Dose: 40 mg Furosemide (Lasix) 40 mg IVPUSH NOW ONE Stop: 09/04/17 17:37 Last Admin: 09/04/17 17:54 Dose: 40 mg Sodium Chloride (Normal Saline) 1,000 mls @ 150 mls/hr IV ASDIRECTED [facility] Last Admin: 09/04/17 16:22 Dose: 150 mls/hr Sodium Chloride (Normal Saline) 150 mls @ 150 mls/hr IV ASDIRECTED ONE Stop: 09/04/17 17:19 Last Admin: 09/04/17 21:29 Dose: Not Given Magnesium Sulfate 2 gm/ Premix 50 mls @ 50 mls/hr IV ONETIME ONE Stop: 09/04/17 18:30 Last Admin: 09/04/17 18:02 Dose: 50 mls/hr Magnesium Sulfate 4 gm/ Premix 100 mls @ 50 mls/hr IV ONETIME ONE Stop: 09/04/17 22:29 Last Admin: 09/04/17 21:57 Dose: 50 mls/hr Iopamidol (Isovue-370 (76%)) 100 ml IVPUSH ONETIME ONE Stop: 09/04/17 16:21 Last Admin: 09/04/17 16:38 Dose: 60 ml Iopamidol (Isovue-370 (76%)) 50 ml IVPUSH ONETIME ONE Stop: 09/04/17 16:24 Last Admin: 09/04/17 16:38 Dose: 10 ml Ketorolac Tromethamine (Acular 0.5% Ophth Soln) 0 ml EYEBOTH DAILY [facility] Last Admin: 09/06/17 09:23 Dose: 1 drop Ketorolac Tromethamine (Acular 0.5% Ophth Soln) 0 ml EYEBOTH TID [facility] Last Admin: 09/07/17 21:16 Dose: 1 drop Methylprednisolone Sodium Succinate (Solu-Medrol) 125 mg IVPUSH DAILY [facility] Last Admin: 09/05/17 17:51 Dose: Not Given Methylprednisolone Sodium Succinate (Solu-Medrol) 125 mg IVPUSH Q12H [facility] Last Admin: 09/07/17 06:03 Dose: 125 mg Pneumococcal Polyvalent Vaccine (Pneumovax 23) 0.5 ml IM .ONCE ONE Stop: 09/05/17 02:02 Last Admin: 09/08/17 11:59 Dose: 0.5 ml Potassium Chloride (Klor-Con M20) 40 meq PO BID [facility] Stop: 09/06/17 09:01 Last Admin: 09/06/17 09:12 Dose: 40 meq Tamoxifen Citrate (Nolvadex) 0 mg PO DAILY [facility] Last Admin: 09/05/17 17:50 Dose: Not Given
== END 2017-09-08 14:30 | disposition home or self-care (01) | DRG 546 ==
LOC: JD.ED 15:53 → JD.MS 20:10
PROVIDERS: ADMIT Internal Medicine Cardiovascular Disease; ATTEND Internal Medicine Cardiovascular Disease
PROC: 3E0234Z Introduction of Serum, Toxoid and Vaccine into Muscle, Percutaneous Approach (ICD-10-PCS; principal; 2017-09-08)
DX: I11.0 Hypertensive heart disease with heart failure (principal); I50.9 Heart failure, unspecified; M35.1 Other overlap syndromes; Z68.41 Body mass index [BMI] 40.0-44.9, adult; J91.8 Pleural effusion in other conditions classified elsewhere; E83.51 Hypocalcemia; E83.42 Hypomagnesemia; R09.02 Hypoxemia; E78.00 Pure hypercholesterolemia, unspecified; N39.3 Stress incontinence (female) (male); E66.9 Obesity, unspecified; M15.9 Polyosteoarthritis, unspecified; F32.9 Major depressive disorder, single episode, unspecified; I10 Essential (primary) hypertension; K58.0 Irritable bowel syndrome with diarrhea; Z85.3 Personal history of malignant neoplasm of breast; E66.01 Morbid (severe) obesity due to excess calories; R00.0 Tachycardia, unspecified; R60.9 Edema, unspecified; M79.672 Pain in left foot; M79.671 Pain in right foot; R11.2 Nausea with vomiting, unspecified; R06.00 Dyspnea, unspecified; E78.5 Hyperlipidemia, unspecified; C50.911 Malignant neoplasm of unspecified site of right female breast; G47.33 Obstructive sleep apnea (adult) (pediatric); R73.9 Hyperglycemia, unspecified; T38.0X5A Adverse effect of glucocorticoids and synthetic analogues, initial encounter; R79.1 Abnormal coagulation profile; Z23 Encounter for immunization; Z88.1 Allergy status to other antibiotic agents; Z88.0 Allergy status to penicillin; Z87.11 Personal history of peptic ulcer disease; Z79.899 Other long term (current) drug therapy
CPT/HCPCS: 36415; 71046; 71275; 80053; 83735; 83880; 84484; 85007; 85027; 86738; 93005; 96361; 96365; 96372; 96375; 99285; J0610; J1650; J1940; J7040; J7050 ×2; Q9967 ×2; 80048; 83036; 83605; 84439; 84443; 85025; 85379; 86140; 87486; 87581; 87633; 87798; 87899; 90732; 93010; 93970; 93970-26; 94760; 97116-GP; 97162-GP; 97165-GO; 97530-GO; 97530-GP; A9270-GY; G0009; J2930; J3475